=== PATIENT | male | born 1950 | race Caucasian/White ===

== ENCOUNTER → 2017-04-30 | Outpatient (CLI) | payer OTHER, MEDICARE ==
[~2017-04-30] MED LIST: PRLSR20 PO
--- NOTE | 2017-04-30 10:44 | DIAGNOSTIC IMAGING REPORT ---
ULTRASOUND EXAM AAA SCREEN CLINICAL HISTORY: 67 years-old Male with EX SMOKER. Screening examination to assess for abdominal aortic aneurysm. Patient has history of prior tobacco abuse. COMPARISON: None available TECHNIQUE: Multiple real time sonographic images of the abdominal aorta were obtained assessing rodriguez-scale appearance as well as color. Doppler and spectral waveform analysis. FINDINGS: MEASUREMENTS: Proximal Aorta: 1.8 x 1.9 cm Mid Aorta: 1.7 x 1.7 cm Distal Aorta: 1.7 x 2.0 cm Right Common Iliac Artery: 1.1 x 1.1 cm Left Common Iliac Artery: 1.1 x 1.2 cm Pulsatile color Doppler flow is seen within the abdominal aorta. Study overall is limited secondary to patient body habitus. IMPRESSION: No evidence of abdominal aortic aneurysm. Mildly limited study secondary to patient body habitus. The above report was generated using voice recognition software. It may contain grammatical, syntax or spelling errors. Electronically signed by: Elan Larry M.D. 04/30/2017 10:43 AM Dictated Date/Time: 04/30/2017 10:40 AM
== END | disposition home or self-care (01) ==
LOC: C.ULTR 10:09
PROVIDERS: ATTEND Physician Assistant
DX: Z87.891 Personal history of nicotine dependence (principal)

== ENCOUNTER 2018-03-29 11:16 | Emergency (ER) | payer OTHER, MEDICARE ==
[~2018-03-29] VITALS: Ht 177.8 cm; Wt 107.8 kg
[2018-03-29 11:18] VITALS: TEMP 36.6; Ht 177.8 cm; Wt 107.8 kg
--- NOTE | 2018-03-29 11:39 | EMERGENCY ROOM VISIT NOTE ---
History First contact with patient: 11:22 Chief Complaint: TESTICULAR PAIN Stated Complaint: SWOLLEN RT TESTICAL History of Present Illness The patient is a 67 year old male who presents to the Emergency Room with complaints of right-sided testicular swelling and pain. The patient states he has had a swollen right testicle for many years. Last week, the patient drove to and from [place] and sat at a poker table a week. He states "I really passed it off". The patient rates the pain 2/10, and states the only things that worsen and are direct pressure or squeezing. He denies any injury or recent illness. He states the swelling has remained approximately the same, but the pain has been worsening. He has never had this worked up in the past. Patient denies any dysuria, urinary frequency, urinary hesitancy, or hematuria. He denies any sexual dysfunction. He is taken no medications for his symptoms. The patient denies any discoloration or rash. Review of Systems A complete 10 point review of systems was reviewed with the patient with pertinent positives and negatives as per history of present illness. All else were negative. Past Medical/Surgical History Hypertension, heart disease Social History Smoking Status: Never Smoker Smokeless Tobacco Use: No Alcohol Use: occasionally Drug Use: none Marital Status: single Housing Status: lives with family Current/Historical Medications Scheduled Ciprofloxacin Hcl (Cipro), 500 MG PO BID Scheduled PRN Omeprazole (Prilosec), 20 MG PO HS PRN for STOMACH Physical Exam Vital Signs Date Time Temp Pulse Resp B/P (MAP) Pulse Ox O2 Delivery O2 Flow Rate FiO2 03/29/18 12:52 59 17 115/61 95 Room Air 03/29/18 12:32 58 20 114/73 99 Room Air 03/29/18 11:18 36.6 74 18 127/70 95 Room Air Physical Exam VITAL SIGNS - Vital signs and nursing notes were reviewed. GENERAL -67-year-old Male appearing his stated age who is in no acute distress. Communicates well with provider and answers questions appropriately. HEART: Regular rate and rhythm without murmurs gallops or rubs. LUNGS: Clear to auscultation bilaterally without wheezes, rales or rhonchi. No dullness to percussion. No retractions or accessory muscle use. ABDOMEN - Abdominal contour distended without pulsations or visible masses. BS normoactive all four quadrants. No tenderness to palpation appreciated diffusely. No palpable masses, hepatosplenomegaly, or ascites noted. GENITOURINARY - Circumcised male without penile lesions or adhesions. No urethral discharge. Right sided testicular tenderness to palpation appreciated. Right testicle and scrotum approximately 4x the size of the left (approximately the size of a lemon). No palpable masses. Negative blue dot sign. PSYCH - A&Ox3 and cooperates fully with examiner. Pt is very pleasant and interacts well with examiner. Medical Decision & Procedures ER Provider Diagnostic Interpretation: SCROTAL ULTRASOUND CLINICAL HISTORY: Right testicular pain and swelling. COMPARISON STUDY: None. TECHNIQUE: Grayscale and color and duplex Doppler sonography of the scrotum was performed. FINDINGS: The right testis measures 4.3 x 2.6 x 2.3 cm and the left measures 2.8 x 2.7 x 3 cm. There is no testicular mass. Color flow within each testis is noted. There is apparent slight asymmetric increased color flow within the right testis when compared to the left. There is no evidence for epididymitis. A few tiny epididymal cysts are noted. Note is made of a large complex right sided hydrocele. IMPRESSION: 1. No evidence of testicular torsion, testicular mass or epididymitis. 2. Large complex right hydrocele which contains homogeneous echoes which are nonspecific although favor debris. A hematocele could appear similar although is considered less likely. 3. Slight asymmetric increased flow within the right testis which is likely within normal limits although orchitis could appear similar. Electronically signed by: Andi Plasencia M.D. 03/29/2018 12:33 PM Dictated Date/Time: 03/29/2018 12:28 PM Laboratory Results 03/29/18 11:40 Red Blood Count 4.60, Mean Corpuscular Volume 92.2, Mean Corpuscular Hemoglobin 32.0, Mean Corpuscular Hemoglobin Concent 34.7, Mean Platelet Volume 10.0, Neutrophils (%) (Auto) 62.8, Lymphocytes (%) (Auto) 26.4, Monocytes (%) (Auto) 8.9, Eosinophils (%) (Auto) 1.2, Basophils (%) (Auto) 0.4, Neutrophils # (Auto) 4.81, Lymphocytes # (Auto) 2.02, Monocytes # (Auto) 0.68, Eosinophils # (Auto) 0.09, Basophils # (Auto) 0.03 03/29/18 11:40 Test 03/29/18 11:40 03/29/18 13:00 White Blood Count 7.65 K/uL (4.8-10.8) Red Blood Count 4.60 M/uL (4.7-6.1) Hemoglobin 14.7 g/dL (14.0-18.0) Hematocrit 42.4 % (42-52) Mean Corpuscular Volume 92.2 fL (80-100) Mean Corpuscular Hemoglobin 32.0 pg (25-34) Mean Corpuscular Hemoglobin Concent 34.7 g/dl (32-36) Platelet Count 203 K/uL (130-400) Mean Platelet Volume 10.0 fL (7.4-10.4) Neutrophils (%) (Auto) 62.8 % Lymphocytes (%) (Auto) 26.4 % Monocytes (%) (Auto) 8.9 % Eosinophils (%) (Auto) 1.2 % Basophils (%) (Auto) 0.4 % Neutrophils # (Auto) 4.81 K/uL (1.4-6.5) Lymphocytes # (Auto) 2.02 K/uL (1.2-3.4) Monocytes # (Auto) 0.68 K/uL (0.11-0.59) Eosinophils # (Auto) 0.09 K/uL (0-0.5) Basophils # (Auto) 0.03 K/uL (0-0.2) RDW Standard Deviation 43.9 fL (36.4-46.3) RDW Coefficient of Variation 13.2 % (11.5-14.5) Immature Granulocyte % (Auto) 0.3 % Immature Granulocyte # (Auto) 0.02 K/uL (0.00-0.02) Anion Gap 9.0 mmol/L (3-11) Est Creatinine Clear Calc Drug Dose 66.7 ml/min Estimated GFR () 63.5 Estimated GFR (Non- 54.8 BUN/Creatinine Ratio 13.6 (10-20) Calcium Level 8.6 mg/dl (8.5-10.1) Total Bilirubin 0.6 mg/dl (0.2-1) Aspartate Amino Transf (AST/SGOT) 38 U/L (15-37) Alanine Aminotransferase (ALT/SGPT) 37 U/L (12-78) Alkaline Phosphatase 76 U/L (45-117) Total Protein 7.0 gm/dl (6.4-8.2) Albumin 3.4 gm/dl (3.4-5.0) Globulin 3.6 gm/dl (2.5-4.0) Albumin/Globulin Ratio 0.9 (0.9-2) Urine Color YELLOW Urine Appearance CLEAR (CLEAR) Urine pH 5.0 (4.5-7.5) Urine Specific [place] 1.007 (1.000-1.030) Urine Protein NEG (NEG) Urine Glucose (UA) NEG (NEG) Urine Ketones NEG (NEG) Urine Occult Blood NEG (NEG) Urine Nitrite NEG (NEG) Urine Bilirubin NEG (NEG) Urine Urobilinogen NEG (NEG) Urine Leukocyte Esterase NEG (NEG) ED Course The patient was seen and evaluated as above. IV access obtained, labs drawn. Imaging performed and reviewed by myself and radiologist as above. Labs reviewed by myself. I discussed the findings with the patient at bedside. I discussed the case with my attending. I consulted with Urology and spoke with Vasu Santoy STEPHANY, who spoke with the button breaker operator urologist. Recommendation made for obtaining a urine culture and starting the patient on Antibiotics (Cipro or Bactrim). The patient was given his first dose of Cipro here in the ED. Urine culture sent to the lab. ED contacted by urology office. The patient will see Dr. Francisco, urologist, tomorrow in the office at 10:00am. Discharge instructions reviewed, the patient was discharged home in good condition. Medical Decision This is a 67-year-old male patient presents the emergency department planing of increased swelling and pain in his right testicle. The patient does report a history of swelling in the right testicle for many years. He has never had it worked up before. He presents today due to ongoing pain for the past 1 week after traveling and sitting frequently. Laboratory workup here in the emergency department did not reveal any leukocytosis, anemia, thrombus cytopenia. Renal, hepatic function testing was without significant abnormality. Electrolytes were without significant abnormality. Ultrasound performed and showed evidence for hydrocele with debris, possible hematocele. Urology contacted regarding the findings and recommendations made for outpatient management and antibiotics at this time. The patient was started on ciprofloxacin here in the emergency department. Urine culture sent to the lab. The patient will follow-up with urology regarding ongoing management. Differential diagnosis includes hydrocele, hematocele, varicocele, testicular torsion, epididymitis, orchitis, malignancy, UTI, STD, and others. The chart was completed utilizing [employer] Speech voice recognition software. Grammatical errors, random word insertions, pronoun errors, and incomplete sentences are an occasional consequence of this system due to software limitations, ambient noise, and hardware issues. Any formal questions or concerns about the content, text, or information contained within the body of this dictation should be directly addressed to the provider for clarification. Medication Reconcilliation Current Medication List: was personally reviewed by me Blood Pressure Screening Patient's blood pressure: Normal blood pressure Impression Primary Impression: Hydrocele in adult Departure Information Dispostion Home / Self-Care Condition GOOD Prescriptions Ciprofloxacin Hcl (CIPRO) 500 Mg Tab 500 MG PO BID for 10 Days, #20 TAB Prov: Shira Carvajal PA-C 03/29/18 Referrals Kami Lam PA-C (PCP) Shahid Francisco M.D. Miller, Howard I., MD, Urology Patient Instructions ED Hydrocele Type Not Specified, My [facility] Additional Instructions You were seen in the emergency department today for right testicular swelling and pain. As discussed, ultrasound shows evidence for what is known is a hydrocele. You were prescribed Cipro to be taken twice daily as directed. This is an antibiotic. All antibiotics have the potential to cause diarrhea. Stop this medication and contact a medical provider if you were to develop any significant adverse side effects including: wheezing, shortness of breath, passing out, vomiting, or a diffuse rash. Always take antibiotics as directed and COMPLETE the ENTIRE course regardless of the improvement of your symptoms. Ibuprofen(Motrin, Advil) may be used for fever or pain. Use 600mg every six hours as needed. Take with food. Avoid using more than 2400mg in a 24 hour period. Do not use 2400mg per day for more than three consecutive days without physician direction. Prolonged inappropriate use can lead to stomach upset or ulcers. (AND/OR) Acetaminophen(Tylenol) may be used for fever or pain. Use 1000mg every six hours as needed. Avoid using more than 3000mg in a 24 hour period. Use scrotal support to help with pain and swelling. Follow-up with urology at the appointment you were provided with. They will determine the definitive management for the concern. Return to the emergency department for any significantly worsening pain, swelling, numbness or tingling, urinary symptoms, discoloration, or other concerning symptoms.
[2018-03-29 11:51] LABS: BASO % 0.4 %; BASO ABS # 0.03 K/uL (0-0.2); EOS % 1.2 %; EOS ABS # 0.09 K/uL (0-0.5); HEMATOCRIT 42.4 % (42-52); HEMOGLOBIN 14.7 g/dL (14.0-18.0); IG# 0.02 K/uL (0.00-0.02); LYMPH % 26.4 %; LYMPH ABS # 2.02 K/uL (1.2-3.4); MEAN CELL VOLUME 92.2 fL (80-100); MEAN CORPUSCULAR HGB CONC 34.7 g/dl (32-36); MONO % 8.9 %; MONO ABS # 0.68 K/uL (0.11-0.59); NEUT % 62.8 %; NEUT ABS # 4.81 K/uL (1.4-6.5); PLATELET COUNT 203 K/uL (130-400); RED CELL DISTRIBUTION WIDTH CV 13.2 % (11.5-14.5); RED CELL DISTRIBUTION WIDTH SD 43.9 fL (36.4-46.3); WHITE BLOOD COUNT 7.65 K/uL (4.8-10.8)
[2018-03-29 12:11] LABS: ALBUMIN 3.4 gm/dl (3.4-5.0); CALCIUM 8.6 mg/dl (8.5-10.1); CREATININE 1.34 mg/dl (0.60-1.40); POTASSIUM 3.6 mmol/L (3.5-5.1)
--- NOTE | 2018-03-29 12:35 | DIAGNOSTIC IMAGING REPORT ---
SCROTAL ULTRASOUND CLINICAL HISTORY: Right testicular pain and swelling. COMPARISON STUDY: None. TECHNIQUE: Grayscale and color and duplex Doppler sonography of the scrotum was performed. FINDINGS: The right testis measures 4.3 x 2.6 x 2.3 cm and the left measures 2.8 x 2.7 x 3 cm. There is no testicular mass. Color flow within each testis is noted. There is apparent slight asymmetric increased color flow within the right testis when compared to the left. There is no evidence for epididymitis. A few tiny epididymal cysts are noted. Note is made of a large complex right sided hydrocele. IMPRESSION: 1. No evidence of testicular torsion, testicular mass or epididymitis. 2. Large complex right hydrocele which contains homogeneous echoes which are nonspecific although favor debris. A hematocele could appear similar although is considered less likely. 3. Slight asymmetric increased flow within the right testis which is likely within normal limits although orchitis could appear similar. Electronically signed by: Andi Plasencia M.D. 03/29/2018 12:33 PM Dictated Date/Time: 03/29/2018 12:28 PM
[2018-03-29] MEDS ORDERED: CIPROFLOXACIN 500 MG TAB PO STA (13:03)
--- NOTE | 2018-03-29 13:06 | EMERGENCY ROOM VISIT NOTE ---
ED Visit Note First contact with patient: 11:22 The patient was seen and examined with Shira Carvajal PA-C. I agree with the history, physical and findings. Please see the note for disposition and details.
[2018-03-29] MEDS ORDERED: CIPR-255 PO (13:10)
[2018-03-29 13:25] VITALS: BP 115/61; PULSE 59; O2SAT 95
== END 2018-03-29 13:26 | disposition home or self-care (01) ==
LOC: C.EDB 11:17 → C.EDC 13:26
DX: N43.3 Hydrocele, unspecified (principal); I10 Essential (primary) hypertension

== ENCOUNTER 2024-08-15 11:54 | Inpatient (IN) ==
--- NOTE | 2024-08-15 12:08 | Emergency Department Note ---
Impression & Plan Chest pain, Abdominal pain, Hypomagnesemia, Cholelithiasis ED Provider Note CHIEF COMPLAINT: Chest pain, epigastric abdominal pain, hypertension HISTORY OF PRESENTING ILLNESS: This 74-year-old male patient presents emergency department with his and son for evaluation of epigastric abdominal pain radiating into his chest. Symptoms started around 8:30 am when he woke up today. The symptoms are getting progressively worse. The pain is now spreading into the rest of his abdomen. Denies tearing or ripping pain, but feels like a pressure and feels like he has to throw up. Had dry heaves twice, but no vomiting. No history of stents or OK, but his PCP has some concerns about his heart and has an appt with cardiology on 09/12/24. He is not on any blood thinners. He did not take any aspirin today. History of colon cancer cancer s/p partial colectomy and chemo/radiation in 1995. Denies hematochezia, melena, hematuria, hemoptysis, or hematemesis. Denies a history of GI bleeding. Denies any urinary symptoms. Denies any fevers, cough, or URI symptoms. REVIEW OF SYSTEMS: See HPI for pertinent positives and pertinent negatives. ALLERGIES: NKDA MEDICATIONS: Atorvastatin, HCTZ, Losartan, omeprazole PAST MEDICAL HISTORY: HTN, high cholesterol, GERD, colon cancer s/p partial colectomy and chemo/radiation PHYSICAL EXAM: VITALS: Vitals are noted on the nurse's note and reviewed by myself. GENERAL: The patient looks uncomfortable and in pain. He also appears nauseous and slightly pale. However, not diaphoretic. SKIN: Capillary refill <2 sec. EYES: PERRLA. EOMI. Conjunctivae without injection, sclerae without icterus. NOSE: Patent without discharge. MOUTH: Mucous membranes moist. Uvula midline. Airway patent. NECK: Supple without nuchal rigidity. HEART: Regular rate and rhythm without murmurs gallops or rubs. LUNGS: Clear to auscultation bilaterally without wheezes, rales or rhonchi. No retractions or accessory muscle use. ABDOMEN: Positive bowel sounds x 4. The abdomen is somewhat distended. He is diffusely tender to palpation with maximal tenderness in the epigastric area. No masses or hepatosplenomegaly. Licea sign negative. No CVA tenderness. No guarding, rigidity, or rebound tenderness. MUSCULOSKELETAL: No gross musculoskeletal defects. Bilateral calves are nontender to palpation. No erythema, edema, warmth, or cording felt. Peripheral pulses 2+ and equal in the bilateral upper and lower extremities. NEURO: Patient was alert and oriented. No focal neurological deficits. DIFFERENTIAL DIAGNOSIS: Differential diagnosis includes OK, aortic dissection, PE, pneumothorax, hemothorax, perforation, hepatitis, pancreatitis, cholecystitis, cholelithiasis, appendicitis, kidney stone, pyelonephritis, UTI, gastritis, gastroenteritis, mesenteric adenitis, obstruction, constipation, hernia, abdominal abscess, perforation, diverticulitis, IBD, ischemic colitis, abdominal aortic aneurysm, testicular torsion, prostatitis, or others. ED COURSE AND MEDICAL DECISION MAKING: HISTORY FROM INDEPENDENT HISTORIAN: Additional history obtained from the patient's and son. MEDICATIONS GIVEN: Morphine 4 mg IV, Zofran 4 mg IV. Morphine 2 mg IV. Pepcid 20 mg IV. Aspirin 324 mg p.o. chewed. Carafate 1 g p.o. Magnesium 1 g IV. Dilaudid 0.5 mg IV. There is currently a severe shortage of IV fluids. The patient's condition was assessed and IV fluids were initially held in the ER. MONITOR: Continuous cooker mechanic: Order was placed for continuous cooker mechanic. Patient was placed on the cooker mechanic and continuous pulse ox. Patient was noted to be in normal sinus rhythm at an initial rate of 60 bpm per my interpretation. EKG: EKG was interpreted by myself as sinus bradycardia at 58 bpm with T wave inversions in the lateral leads. Repeat EKG with sinus bradycardia at 56 bpm with prolonged QT, but no acute ST or T wave changes. INTERPRETATION OF LABS: I interpreted the labs with full lab results as below in the lab section of this note. Pertinent lab results discussed in the MDM section below. INTERPRETATION OF IMAGING: Imaging studies were interpreted by myself and read by radiology as per the imaging section of this note. Chest x-ray shows mild enlargement of the cardiac silhouette, but no other acute cardiopulmonary etiology. CTA of the chest, abdomen, and pelvis with dissection protocol showed no evidence of aortic dissection. There is aneurysmal dilation of the ascending aorta measuring 4.8 cm at the level of the main pulmonary artery. Moderate aortic valve calcification. Findings raising the possibility of acute cholecystitis. Right upper quadrant ultrasound is recommended for further evaluation. No other acute intra-abdominal or intrapelvic etiology. Right upper quadrant ultrasound showed a distended gallbladder with stones and sludge, but no obvious evidence for cholecystitis. Hepatic steatosis is present. CONSULTATIONS: On-call hospitalist CRITICAL CARE: I have personally spent 60 minutes of critical care time in the direct management of this patient. This includes bedside care, interpretation of diagnostic studies, and testing, discussion with consultants, patient, and family members, and other required patient management activities. This 60 minutes is in excess of all separately billable procedures. MDM SUMMARY: I examined the patient. The patient started with epigastric abdominal pain abruptly around 8:30 AM when he woke up this morning. The pain radiates into his chest and is now spreading to the rest of his abdomen. Symptoms are getting progressively worse. He has nausea and dry heaving, but no vomiting. He is not on any blood thinners. He did not take any aspirin today. The patient's blood pressure is also elevated. He took his losartan this morning as prescribed. On initial exam, the patient appeared to be in pain, was pale, and hypertensive. However, he was bradycardic. He was not diaphoretic. Based on the patient's history, vital signs, and exam, there was concern for possible aortic dissection. Nursing staff was at bedside at the time of my examination and were placing the IV and drawing laboratory studies. EKG did not show evidence for ischemia or STEMI. The patient had a stat chest x-ray performed. The patient was independently evaluated by Dr. Becker, who examined the patient and agrees with my assessment and treatment plan. He patient was then taken down for a stat CTA of the chest, abdomen, and pelvis with dissection protocol. Aspirin was held initially due to the concern for aortic dissection. The patient was given morphine as above to help with pain control and blood pressure. The patient's blood pressure did improve after the morphine. White blood cell count elevated at 12.50. Hemoglobin low at 13.4. Platelet count normal at 202. Coags were normal. Creatinine elevated at 1.41 and glucose 135, but CMP otherwise normal. Magnesium low at 1.4 and the patient was given magnesium 1 g IV. High-sensitivity troponin elevated at 21 with a delta high sensitive troponin of 24.6. Urinalysis without evidence of blood or UTI. Chest x-ray shows mild enlargement of the cardiac silhouette, but no other acute cardiopulmonary etiology. CTA of the chest, abdomen, and pelvis with dissection protocol showed no evidence of aortic dissection. There is aneurysmal dilation of the ascending aorta measuring 4.8 cm at the level of the main pulmonary artery. Moderate aortic valve calcification. Findings raising the possibility of acute cholecystitis. Right upper quadrant ultrasound is recommended for further evaluation. No other acute intra-abdominal or intrapelvic etiology. Right upper quadrant ultrasound showed a distended gallbladder with stones and sludge, but no obvious evidence for cholecystitis. Hepatic steatosis is present. Once aortic dissection was ruled out, the patient was given aspirin 324 mg p.o. chewed. Repeat EKG without evidence of ischemia or STEMI and repeat high- sensitivity troponin with only slight increase. The patient had continued pain despite morphine 4 mg IV, Zofran 4 mg IV, morphine 2 mg IV, Pepcid 20 mg IV, aspirin 324 mg p.o. chewed, Carafate 1 g p.o., and Dilaudid 0.5 mg IV. Based on the patient's history, exam, workup findings, and progress and clinical course, I suspect his symptoms are likely secondary to the cholelithiasis, sludge, and biliary colic. There is concern for possible cholecystitis on CT scan, but read for quadrant ultrasound negative for cholecystitis. However, the patient does have an elevated white blood cell count. The patient was afebrile in the ER. Given the patient's presentation, workup findings, and persisting symptoms, it was felt the patient would benefit from admission. I spoke with the on-call hospitalist who agreed to admit the patient for further evaluation and treatment. Please refer to their dictation for further details. The patient's care was transferred in stable condition. DIAGNOSIS: Chest pain Abdominal pain Cholelithiasis with gallbladder sludge Hypomagnesemia Past Med/Surg History Problem List (Updated 08/15/24 @ 19:51 by Melvi Mora PA-C) Cholelithiasis (Acute) Hypomagnesemia (Acute) Abdominal pain (Acute) Chest pain (Acute) Elevated serum creatinine Troponin level elevated REMA (acute kidney injury) Alcohol use disorder Hypomagnesemia Nausea and vomiting Abdominal pain Medical History Aortic stenosis Ascending aorta dilatation Aortic root dilation LVH (left ventricular hypertrophy) Aortic stenosis due to bicuspid aortic valve H/O sleep apnea S/P UPPV Bicuspid aortic valve MILD BY 2020 ECHO Leukoplakia of vocal cords Laryngoscopies with scraping every 8 months History of colon cancer Acid reflux Hyperlipidemia Hypertension Surgical History H/O oral surgery UPPV for GEREMIAS History of laryngoscopy "45 SURGERIES FOR" Hx of colonoscopy History of colon resection w/umbilical hernia repair Family History Other Aortic aneurysm Social History Smoking Status: Never smoker Cigarettes Per Day: QUIT , H/O 1PPD; Second Hand Exposure: No; Do You Dip or Chew Tobacco: No; Hx Alcohol Use: Yes Alcohol type: beer and hard liquor Alcohol Intake Frequency: 4 or More x per/Week Alcohol Intake Frequency Comment: 3-4 drinks / night, denies h/o withdrawal Hx Substance Use: No Preferred Language: Slovak Communication Ability: Effective Visual Impairment: No Limitations Nursing Program Director Required: No Beliefs That Will Affect Care: None Current Living Situation: Spouse Other Information That Helps Us Care for You: No Feels Safe at Home: Yes Safety Concerns: Feels Safe At This Time Assistive Devices: Glasses Allergies Allergies Allergy/AdvReac Type Severity Reaction Status Date / Time No Known Allergies Allergy Verified 03/08/24 11:26 Home Meds Home Medications Medication Instructions Recorded Confirmed atorvastatin 10 mg tablet 10 mg PO QAM 07/01/18 08/15/24 hydrochlorothiazide 12.5 mg capsule 12.5 mg PO QAM 07/01/18 08/15/24 losartan 100 mg tablet 100 mg PO QAM 07/01/18 08/15/24 omeprazole 20 mg tablet,delayed 20 mg PO BID 07/01/18 08/15/24 release Results & Data (ED) Vital Signs Vital Signs - 24 hr 08/15/24 11:55 08/15/24 12:15 08/15/24 12:22 Temperature 36.0 C L Temperature Source Temporal Artery Scan Pulse Rate 57 L 57 L 88 Pulse Rate from SpO2 Sensor Pulse Rhythm Regular Regular Pulse Strength Normal Respiratory Rate 20 14 12 Respiratory Effort / Characteristics Non-Labored Spontaneous Respiratory Depth Normal Respiratory Pattern Regular Blood Pressure 203/81 H 188/93 H Blood Pressure Mean 121 114 Blood Pressure Position Sitting Pulse Oximetry 100 98 Oxygen Delivery Method Room Air Room Air Sepsis Recent Fever Within 48 Hours No Sepsis New/Unexplained Change in Mental Status No Sepsis Action Taken by Nursing No Action Required 08/15/24 12:25 08/15/24 12:45 08/15/24 13:00 Temperature Temperature Source Pulse Rate 60 58 L 57 L Pulse Rate from SpO2 Sensor Pulse Rhythm Pulse Strength Respiratory Rate 18 14 17 Respiratory Effort / Characteristics Respiratory Depth Respiratory Pattern Blood Pressure 191/103 H 152/78 H 165/83 H Blood Pressure Mean 151 127 113 Blood Pressure Position Pulse Oximetry 99 Oxygen Delivery Method Sepsis Recent Fever Within 48 Hours Sepsis New/Unexplained Change in Mental Status Sepsis Action Taken by Nursing 08/15/24 13:15 08/15/24 13:30 08/15/24 14:30 Temperature Temperature Source Pulse Rate 61 62 Pulse Rate from SpO2 Sensor Pulse Rhythm Pulse Strength Respiratory Rate 16 17 Respiratory Effort / Characteristics Respiratory Depth Respiratory Pattern Blood Pressure 155/94 H 131/76 167/91 H Blood Pressure Mean 124 91 118 Blood Pressure Position Pulse Oximetry 99 98 Oxygen Delivery Method Sepsis Recent Fever Within 48 Hours Sepsis New/Unexplained Change in Mental Status Sepsis Action Taken by Nursing 08/15/24 14:45 08/15/24 15:00 08/15/24 15:31 Temperature Temperature Source Pulse Rate 58 L 60 59 L Pulse Rate from SpO2 Sensor 58 L Pulse Rhythm Pulse Strength Respiratory Rate 15 14 18 Respiratory Effort / Characteristics Respiratory Depth Respiratory Pattern Blood Pressure 164/78 H 167/91 H 153/82 H Blood Pressure Mean 106 110 119 Blood Pressure Position Pulse Oximetry 100 98 98 Oxygen Delivery Method Room Air Room Air Room Air Sepsis Recent Fever Within 48 Hours Sepsis New/Unexplained Change in Mental Status Sepsis Action Taken by Nursing 08/15/24 16:00 08/15/24 16:15 Temperature Temperature Source Pulse Rate 60 Pulse Rate from SpO2 Sensor Pulse Rhythm Pulse Strength Respiratory Rate 18 Respiratory Effort / Characteristics Respiratory Depth Respiratory Pattern Blood Pressure 156/81 H 156/98 H Blood Pressure Mean 117 126 Blood Pressure Position Pulse Oximetry 96 Oxygen Delivery Method Room Air Sepsis Recent Fever Within 48 Hours Sepsis New/Unexplained Change in Mental Status Sepsis Action Taken by Nursing Laboratory Data 08/15/24 12:10 08/15/24 12:10 Lab Results 08/15/24 08/15/24 Range/Units 12:10 14:13 WBC 12.50 H (4.8-10.8) K/ul RBC 4.29 L (4.70-6.10) M/uL Hgb 13.4 L (14.0-18.0) g/dl Hct 38.3 L (42.0-52.0) % MCV 89.3 (80.0-100.0) fL MCH 31.2 (25.0-34.0) pg MCHC 35.0 (32.0-36.0) g/dL RDW Std Deviation 42.6 (36.4-46.3) fL RDW Coeff of Estrellita 13.2 (11.5-14.5) % Plt Count 202 (130-400) K/uL MPV 10.0 (9.4-12.4) fL Immature Gran % (Auto) 0.5 % Neut % (Auto) 78.9 % Lymph % (Auto) 13.0 % Bell % (Auto) 6.6 % Eos % (Auto) 0.6 % Baso % (Auto) 0.4 % Neut # (Auto) 9.88 H (1.40-6.50) K/uL Lymph # (Auto) 1.62 (1.20-3.40) K/uL Bell # (Auto) 0.82 H (0.11-0.59) K/uL Eos # (Auto) 0.07 (0.00-0.50) K/uL Baso # (Auto) 0.05 (0.00-0.20) K/uL Immature Gran # (Auto) 0.06 (0.01-0.20) K/uL PT 10.6 (9.0-12.0) Seconds INR 1.0 (0.9-1.1) APTT 24 (21-31) Seconds PTT Ratio 0.9 Sodium 136 (136-145) mmol/L Potassium 4.1 (3.5-5.1) mmol/L Chloride 102 (98-107) mmol/L Carbon Dioxide 23 (21-32) mmol/L Anion Gap 11 (3-11) BUN 21 (6-23) mg/dl Creatinine 1.41 H (0.6-1.4) mg/dl Est Cr Clr Drug Dosing 55.8 ml/min eGFR 52.62 BUN/Creatinine Ratio 14.9 (10-20) Glucose 135 H (70-99(Fasting)) mg/dl Calcium 9.5 (8.6-10.3) mg/dl Magnesium 1.4 L (1.7-2.4) mg/dl Total Bilirubin 0.8 (0.2-1.0) mg/dl AST 20 (13-39) U/L ALT 14 (7-52) U/L Alkaline Phosphatase 86 (34-104) U/L Troponin I High Sens 21.0 H 24.6 H (0-20) pg/ml Total Protein 7.5 (6.0-8.3) gm/dl Albumin 4.2 (3.4-5.0) gm/dl Globulin 3.3 (2.5-4.0) gm/dl Albumin/Globulin Ratio 1.3 (0.9-2) Lipase 25 (11-82) U/L Administered Medications Acetaminophen (Acetaminophen 500 Mg Tab) 1,000 mg PO Q8H CHE Stop: 09/14/24 16:29 Last Admin: 08/16/24 01:21 Dose: 1,000 mg Documented By: Admin: 08/15/24 17:22 Dose: 1,000 mg Documented By: MANDA Pantoprazole Sodium (Protonix) 40 mg in 10 mls @ 5 mls/min IV BID CHE Stop: 09/14/24 20:59 Last Admin: 08/15/24 19:44 Dose: 5 mls/min Documented By: JAZLYN Ampicillin Sodium/Sulbactam Sodium (Unasyn) 3,000 mg in 100 mls @ 200 mls/hr IV Q6H CHE Stop: 08/25/24 19:29 Last Infusion: 08/16/24 01:58 Dose: Infused Documented By: Admin: 08/16/24 01:20 Dose: 200 mls/hr Documented By: Infusion: 08/15/24 22:30 Dose: Infused Documented By: Admin: 08/15/24 21:59 Dose: 200 mls/hr Documented By: JAZLYN Simethicone (Simethicone 80 Mg Chew) 80 mg PO Q6H CHE Stop: 08/16/24 18:59 Last Admin: 08/16/24 01:23 Dose: 80 mg Documented By: Admin: 08/15/24 19:48 Dose: 80 mg Documented By: JAZLYN Discontinued Medications Aspirin (Aspirin Chew 324 Mg) 324 mg PO NOW STA Stop: 08/15/24 13:28 Last Admin: 08/15/24 13:30 Dose: 324 mg Documented By: CONSTANTIN Hydromorphone HCl (Hydromorphone Inj 0.5 Mg/0.5 Ml Syr) 0.5 mg IV NOW STA Stop: 08/15/24 15:17 Last Admin: 08/15/24 15:20 Dose: 0.5 mg Documented By: MADNA Famotidine (Pepcid 20mg Iv Push) 20 mg in 5 mls @ 2.5 mls/min IV NOW STA Stop: 08/15/24 13:21 Last Admin: 08/15/24 13:23 Dose: 2.5 mls/min Documented By: ANT Magnesium Sulfate/Dextrose (Magnesium Sulfate / D5w) 1 gm in 100 mls @ 100 mls/hr IV NOW STA Stop: 08/15/24 15:15 Last Infusion: 08/15/24 15:33 Dose: Infused Documented By: Admin: 08/15/24 14:24 Dose: 100 mls/hr Documented By: ANT Sodium Chloride (Nss) 1,000 mls @ 100 mls/hr IV .Q10H CHE Stop: 08/16/24 02:29 Last Admin: 08/15/24 17:22 Dose: 100 mls/hr Documented By: MANDA Magnesium Sulfate/Dextrose (Magnesium Sulfate / D5w) 1 gm in 100 mls @ 50 mls/hr IV ONE ONE Stop: 08/15/24 20:51 Last Infusion: 08/15/24 21:42 Dose: Infused Documented By: Admin: 08/15/24 19:42 Dose: 50 mls/hr Documented By: JAZLYN Ioversol (Optiray 320 125ml) 120 ml IV ONCE ONE Stop: 08/15/24 12:46 Last Admin: 08/15/24 12:45 Dose: 120 ml Documented By: JAR Morphine Sulfate (Morphine Sulfate 4 Mg/Ml 1 Ml Carp\\Vial) 4 mg IV NOW STA Stop: 08/15/24 12:09 Last Admin: 08/15/24 12:45 Dose: 4 mg Documented By: ANT Morphine Sulfate (Morphine Sulfate 2 Mg/Ml Carp) 2 mg IV NOW STA Stop: 08/15/24 13:21 Last Admin: 08/15/24 13:24 Dose: 2 mg Documented By: ANT Ondansetron HCl (Ondansetron Inj 2 Mg/Ml 2 Ml Vial) 4 mg IV NOW STA Stop: 08/15/24 12:09 Last Admin: 08/15/24 12:45 Dose: 4 mg Documented By: ANT Sucralfate (Sucralfate 1 Gm/10 Ml Udc) 1 gm PO NOW STA Stop: 08/15/24 14:16 Last Admin: 08/15/24 14:24 Dose: 1 gm Documented By: ANT Imaging Data Radiologist's Impression: Abdomen/Pelvis CTA 08/15/24 12:08 CT angio abdomen pelvis w con CLINICAL HISTORY: Chest pain, abdominal pain - eval dissection TECHNIQUE: Multidetector row helical CT of the abdomen and pelvis was performed, following intravenous administration of iodinated contrast. No oral contrast was administered. Automated dose lowering techniques and/or adjustment according to patient size were utilized for this exam. Coronal and sagittal reformations were obtained. MIP and 3D volume rendered reconstructions were obtained. CT DOSE: 2938.51 mGy.cm Comparison: Comparison is made to CT abdomen pelvis 08/15/2024 FINDINGS: Lower chest: Bibasilar atelectasis versus scarring is seen. Liver: Unremarkable. No focal lesions are seen. Gallbladder and biliary tree: No calcified gallstones. Normal caliber wall. No intra- or extrahepatic biliary ductal dilation. Pancreas: Fatty replacement of the pancreas is seen. Spleen: Unremarkable. Adrenals: Unremarkable. Kidneys and ureters: Exophytic cysts are seen. Bladder: Unremarkable. Reproductive organs: Unremarkable. Bowel: Postsurgical changes are seen about the sigmoid flexure. Patient is status post appendectomy. Lymph nodes Retroperitoneal: Unremarkable. Pelvic: Unremarkable. Mesenteric: Unremarkable. Peritoneum: Normal. Abdominal wall: Bilateral fat-containing inguinal hernias are seen. Bones: Degenerative changes in the visualized spine. CT angiogram: The abdominal aortic contours appear intact without evidence of aneurysmal dilatation and/or dissection. No significant atherosclerosis is seen. The origins of the celiac axis, superior mesenteric, inferior mesenteric and bilateral renal arteries are patent. IMPRESSION: No acute abnormalities and in particular no evidence of aortic dissection. ACT 112: Negative or not required by law. Electronically signed by: Patrick Valles M.D. 08/15/2024 12:56 PM Chest CTA 08/15/24 12:08 CT ANGIOGRAPHY OF THE CHEST DISSECTION PROTOCOL CLINICAL HISTORY: Chest pain, epigastric pain. Evaluate for aortic dissection. COMPARISON STUDY: Chest radiograph July 07, 2018. Chest radiograph performed earlier today. TECHNIQUE: Before and following the IV administration of 120 mL of Optiray, helical axial images of the chest were obtained. Maximal intensity projections and sagittal and coronal reformats were viewed on an independent 3D workstation. IV contrast was administered without complication. Automated exposure control was utilized for the study. A dose lowering technique was utilized adhering to the principles of ALARA. FINDINGS: Ascending aorta is dilated, measuring 4.8 cm at the level of the main pulmonary artery. There is no intramural hematoma or thoracic aortic dissection. There is moderate aortic valvular calcification. The aorta measures approximately 4.4 cm at the level the sinuses of Valsalva. No pulmonary emboli are identified. The heart is mildly enlarged. There is no pericardial effusion. No enlarged axillary, mediastinal or hilar lymph nodes are present. There is no pneumothorax or pleural effusion. No suspicious pulmonary nodules are present. Subpleural groundglass right lower lobe opacity favors atelectasis or scarring. The gallbladder is distended. There is pericholecystic stranding. There may be evidence for hyperemia within the adjacent liver parenchyma. IMPRESSION: 1. No thoracic aortic dissection. 2. Aneurysmal dilatation of the ascending aorta measuring 4.8 cm at the level of the main pulmonary artery. 3. Moderate aortic valvular calcification. 4. Findings raising the possibility of acute cholecystitis. Right upper quadrant ultrasound is recommended for further evaluation. ACT 112: Negative or not required by law. Electronically signed by: Andi Plasencia M.D. 08/15/2024 1:22 PM Chest X-Ray 08/15/24 12:08 XR chest 1V portable CLINICAL HISTORY: Chest pain, nonspecific COMPARISON STUDY: Chest radiograph July 07, 2018. FINDINGS: Lung volumes are normal. Lungs are clear. There is no pneumothorax or pleural effusion. There is mild enlargement of the cardiac silhouette. Mediastinal contours are normal. There is no evidence for pulmonary edema. IMPRESSION: No acute cardiopulmonary findings. ACT 112: Negative or not required by law. Electronically signed by: Andi Plasencia M.D. 08/15/2024 1:00 PM Gallbladder Ultrasound 08/15/24 13:22 US gallbladder CLINICAL HISTORY: Abdominal pain, ? Cholecystokinin on CT TECHNIQUE: Multiple real-time sonographic images of the right upper quadrant were obtained. Comparison: Comparison is made to CT abdomen pelvis 08/15/2024 FINDINGS: The liver is diffusely echogenic in appearance with poor ultrasound penetration, with normal contour, which is consistent with fatty infiltration. No focal mass lesions are seen. No intrahepatic ductal dilatation is seen. The gallbladder is distended with stones and sludge. No definite pericholecystic fluid is seen. The wall measures 2 mm. A sonographic Licea's sign was not elicited by the senior front end developer. The common duct measures 0.5 cm in diameter at the level of the hepatic artery. The visualized portions of the pancreas appear normal. The right kidney shows normal echogenicity, cortical thickness and renal contour. The right kidney shows no evidence of hydronephrosis or mass. No ascites or free fluid is seen in Desir's pouch. IMPRESSION: 1. Distended gallbladder with stones and sludge however no Licea's sign, wall thickening, or pericholecystic fluid is seen. 2. Hepatic steatosis. ACT 112: Negative or not required by law. Electronically signed by: Patrick Valles M.D. 08/15/2024 2:05 PM Discharge Plan Visit Data Chief Complaint: Abdominal Pain Stated Complaint: HYPERTENSION, CHEST PAIN ED Provider: Elmer Becker ED Midlevel Provider: Melvi Mora Discharge Problem: Chest pain, Abdominal pain, Hypomagnesemia, Cholelithiasis Patient Disposition: Admitted As Inpatient Condition: Good Discharge Instructions Interventions: ED Discharge Assessment Last Done: 08/15/24 18:01 Addendum August 16, 2024 02:52 I was consulted by the Advanced Practice Provider and was substantively involved in the patient's visit.This includes aspects of the HPI, MDM, diagnostic interpretations, and disposition/plan. I discussed the case with the HOMERO, examined the patient, and agree with the findings and plan as documented in HOMERO Morgan's note. Discharge Problem: Chest pain Qualifiers: Chest pain type: unspecified Qualified Code(s): R07.9 - Chest pain, unspecified Abdominal pain Qualifiers: Abdominal location: generalized Qualified Code(s): R10.84 - Generalized abdominal pain Cholelithiasis Qualifiers: Cholelithiasis location: gallbladder Cholecystitis presence: without cholecystitis Biliary obstruction: without biliary obstruction Qualified Code(s): K80.20 - Calculus of gallbladder without cholecystitis without obstruction
[2024-08-15 12:32] LABS: Basophils # (auto) 0.05 K/uL (0.00-0.20); Basophils % (auto) 0.4 %; Eosinophils # (auto) 0.07 K/uL (0.00-0.50); Eosinophils % (auto) 0.6 %; Hematocrit (blood only) 38.3 % (42.0-52.0); Hemoglobin 13.4 g/dl (14.0-18.0); Immature Granulocytes # (auto) 0.06 K/uL (0.01-0.20); Immature Granulocytes % (auto) 0.5 %; Lymphocytes # (auto) 1.62 K/uL (1.20-3.40); Mean Corpuscular Hemoglobin 31.2 pg (25.0-34.0); Mean Corpuscular Volume 89.3 fL (80.0-100.0); Monocytes # (auto) 0.82 K/uL (0.11-0.59); Monocytes % (auto) 6.6 %; Neutrophils # (auto) 9.88 K/uL (1.40-6.50); Neutrophils % (auto) 78.9 %; Platelet Count 202 K/uL (130-400); RDW Coefficient of Variation 13.2 % (11.5-14.5); RDW Standard Deviation 42.6 fL (36.4-46.3); Red Blood Count 4.29 M/uL (4.70-6.10)
[2024-08-15] MEDS: MoRPHine SULFATE 4 MG/ML 1 ML CARP\\VIAL IV STA (12:45)
[2024-08-15] MEDS: ONDANSETRON INJ 2 MG/ML 2 ML VIAL IV STA (12:45)
[2024-08-15] MEDS: OPTIRAY 320 125ml IV ONE (12:45)
[2024-08-15 12:48] LABS: Albumin Globulin Ratio 1.3 (0.9-2); Albumin Level 4.2 gm/dl (3.4-5.0); BUN Creatinine Ratio 14.9 (10-20); Bilirubin,Total 0.8 mg/dl (0.2-1.0); Calcium 9.5 mg/dl (8.6-10.3); Creatinine Clr Calc Pharmacy 55.8 ml/min; Globulin 3.3 gm/dl (2.5-4.0); Magnesium 1.4 mg/dl (1.7-2.4); Potassium 4.1 mmol/L (3.5-5.1); Total Protein 7.5 gm/dl (6.0-8.3)
--- NOTE | 2024-08-15 12:58 | CT Scan Report ---
CT angio abdomen pelvis w con CLINICAL HISTORY: Chest pain, abdominal pain - eval dissection TECHNIQUE: Multidetector row helical CT of the abdomen and pelvis was performed, following intravenou s administration of iodinated contrast. No oral contrast was administered. Automated dose lowering te chniques and/or adjustment according to patient size were utilized for this exam. Coronal and sagitta l reformations were obtained. MIP and 3D volume rendered reconstructions were obtained. CT DOSE: 2938.51 mGy.cm Comparison: Comparison is made to CT abdomen pelvis 08/15/2024 FINDINGS: Lower chest: Bibasilar atelectasis versus scarring is seen. Liver: Unremarkable. No focal lesions are seen. Gallbladder and biliary tree: No calcified gallstones. Normal caliber wall. No intra- or extrahepatic biliary ductal dilation. Pancreas: Fatty replacement of the pancreas is seen. Spleen: Unremarkable. Adrenals: Unremarkable. Kidneys and ureters: Exophytic cysts are seen. Bladder: Unremarkable. Reproductive organs: Unremarkable. Bowel: Postsurgical changes are seen about the sigmoid flexure. Patient is status post appendectomy. Lymph nodes Retroperitoneal: Unremarkable. Pelvic: Unremarkable. Mesenteric: Unremarkable. Peritoneum: Normal. Abdominal wall: Bilateral fat-containing inguinal hernias are seen. Bones: Degenerative changes in the visualized spine. CT angiogram: The abdominal aortic contours appear intact without evidence of aneurysmal dilatation a nd/or dissection. No significant atherosclerosis is seen. The origins of the celiac axis, superior mesenteric, inferior mesenteric and bilateral renal arteries are patent. IMPRESSION: No acute abnormalities and in particular no evidence of aortic dissection. ACT 112: Negative or not required by law. Electronically signed by: Patrick Valles M.D. 08/15/2024 12:56 PM
--- NOTE | 2024-08-15 13:01 | XRay Report ---
XR chest 1V portable CLINICAL HISTORY: Chest pain, nonspecific COMPARISON STUDY: Chest radiograph July 07, 2018. FINDINGS: Lung volumes are normal. Lungs are clear. There is no pneumothorax or pleural effusion. The re is mild enlargement of the cardiac silhouette. Mediastinal contours are normal. There is no eviden ce for pulmonary edema. IMPRESSION: No acute cardiopulmonary findings. ACT 112: Negative or not required by law. Electronically signed by: Andi Plasencia M.D. 08/15/2024 1:00 PM
[2024-08-15 13:07] LABS: Partial Thromboplastin Ratio 0.9; Partial Thromboplastin Time 24 Seconds (21-31); Prothrombin Time 10.6 Seconds (9.0-12.0)
[2024-08-15] MEDS: FAMOTIDINE 20MG IV PUSH 20 MG/5 ML SYR IV STA (13:23)
[2024-08-15] MEDS: MoRPHine SULFATE 2 MG/ML CARP IV STA (13:24)
--- NOTE | 2024-08-15 13:24 | CT Scan Report ---
CT ANGIOGRAPHY OF THE CHEST DISSECTION PROTOCOL CLINICAL HISTORY: Chest pain, epigastric pain. Evaluate for aortic dissection. COMPARISON STUDY: Chest radiograph July 07, 2018. Chest radiograph performed earlier today. TECHNIQUE: Before and following the IV administration of 120 mL of Optiray, helical axial images of t he chest were obtained. Maximal intensity projections and sagittal and coronal reformats were viewed on an independent 3D workstation. IV contrast was administered without complication. Automated exp osure control was utilized for the study. A dose lowering technique was utilized adhering to the toma kiko of CHAD. FINDINGS: Ascending aorta is dilated, measuring 4.8 cm at the level of the main pulmonary artery. Th ere is no intramural hematoma or thoracic aortic dissection. There is moderate aortic valvular calcif ication. The aorta measures approximately 4.4 cm at the level the sinuses of Valsalva. No pulmonary e mboli are identified. The heart is mildly enlarged. There is no pericardial effusion. No enlarged axi llary, mediastinal or hilar lymph nodes are present. There is no pneumothorax or pleural effusion. No suspicious pulmonary nodules are present. Subpleural groundglass right lower lobe opacity favors ate lectasis or scarring. The gallbladder is distended. There is pericholecystic stranding. There may be evidence for hyperemia within the adjacent liver parenchyma. IMPRESSION: 1. No thoracic aortic dissection. 2. Aneurysmal dilatation of the ascending aorta measuring 4.8 cm at the level of the main pulmonary a rtery. 3. Moderate aortic valvular calcification. 4. Findings raising the possibility of acute cholecystitis. Right upper quadrant ultrasound is recomm ended for further evaluation. ACT 112: Negative or not required by law. Electronically signed by: Andi Plasencia M.D. 08/15/2024 1:22 PM
[2024-08-15] MEDS: ASPIRIN CHEW 324 MG PO STA (13:30)
--- NOTE | 2024-08-15 14:06 | Ultrasound Report ---
US gallbladder CLINICAL HISTORY: Abdominal pain, ? Cholecystokinin on CT TECHNIQUE: Multiple real-time sonographic images of the right upper quadrant were obtained. Comparison: Comparison is made to CT abdomen pelvis 08/15/2024 FINDINGS: The liver is diffusely echogenic in appearance with poor ultrasound penetration, with normal contour, which is consistent with fatty infiltration. No focal mass lesions are seen. No intrahepatic duct al dilatation is seen. The gallbladder is distended with stones and sludge. No definite pericholecys tic fluid is seen. The wall measures 2 mm. A sonographic Licea's sign was not elicited by the sonogr apher. The common duct measures 0.5 cm in diameter at the level of the hepatic artery. The visualiz ed portions of the pancreas appear normal. The right kidney shows normal echogenicity, cortical thickness and renal contour. The right kidney sh ows no evidence of hydronephrosis or mass. No ascites or free fluid is seen in Desir's pouch. IMPRESSION: 1. Distended gallbladder with stones and sludge however no Licea's sign, wall thickening, or perich olecystic fluid is seen. 2. Hepatic steatosis. ACT 112: Negative or not required by law. Electronically signed by: Patrick Valles M.D. 08/15/2024 2:05 PM
[2024-08-15] MEDS: MAGNESIUM SULFATE / D5W 1 GM/100 ML BAG IV STA (14:24)
[2024-08-15] MEDS: SUCRALFATE 1 GM/10 ML UDC PO STA (14:24)
[2024-08-15] MEDS: HYDROmorphone INJ 0.5 MG/0.5 ML SYR IV STA (15:20)
--- NOTE | 2024-08-15 16:15 | History & Physical Report ---
Date of Service August 15, 2024 Assessment & Plan (1) Nausea and vomiting: (2) Abdominal pain: Plan: This is a 74-year-old male with PMH of hypertension, hyperlipidemia, GERD, aortic stenosis, ascending aorta dilatation, remote h/o colon cancer and other medical problems listed below who presents with abdominal pain since this morning. Afebrile, WBC 12 Tbili, AST, ALT all within normal limits CTA chest without thoracic aortic dissection. Aneurysmal dilatation of the ascending aorta measuring 4.8 cm at the level of the main pulmonary artery (following [place] [facility] [place] CTA abd/pelvis without evidence of aortic dissection GB ultrasound with distended gallbladder with stones and sludge however no Licea's sign, wall thickening, or pericholecystic fluid is seen. Pain consistent with biliary colic - IV fluids, analgesics, IV PPI, antiemetics, routine gen surg consult (3) Hypomagnesemia: Plan: Mg 1.4. Replacing Repeat Mg in AM (4) Hypertension: Plan: Continue losartan, holding hctz in AM given dehydrated state 2/2 vomiting Manage potential etoh withdrawal (5) Troponin level elevated: Plan: HS trop 21 --> 24.[address] elevation, EKG with sinus bradycardia, prolonged qtc Monitor on tele, trend trops (6) Hyperlipidemia: Plan: Continue statin (7) Aortic stenosis due to bicuspid aortic valve: Plan: Mild, follows with [facility] [place] (8) Ascending aorta dilatation: Plan: Chest CTA today without thoracic aortic dissection. 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 Olivier. Please see addendum. I spent a total of 75 minutes coordinating, documenting, and providing care for this patient excluding time spent in the performance of separately billed services. History of Present Illness Chief Complaint: abd pain Primary Care Provider: Hao Urrutia This is a 74-year-old male with PMH of hypertension, hyperlipidemia, GERD, aortic stenosis, ascending aorta dilatation, remote h/o colon cancer and other medical problems listed below who presents with abdominal pain since this morning. Woke up this AM with abdominal pressure, centrally located. Walked the dogs to see if it would feel better but got worse. Vomited twice from pain. Feels bloated, pain is constant. Had a normal bowel movement around 0300 and at that time did not have abdominal pain. No diarrhea. No F/C, cough, CP, palpitations, SOB, or dysuria. Allergies Allergy/AdvReac Type Severity Reaction Status Date / Time No Known Allergies Allergy Verified 03/08/24 11:26 Home Medications Medication Instructions Recorded Confirmed Type atorvastatin 10 mg tablet 10 mg PO QAM 07/01/18 08/15/24 History hydrochlorothiazide 12.5 mg capsule 12.5 mg PO QAM 07/01/18 08/15/24 History losartan 100 mg tablet 100 mg PO QAM 07/01/18 08/15/24 History omeprazole 20 mg tablet,delayed 20 mg PO BID 07/01/18 08/15/24 History release Past Med/Surg History Problem List (Updated 08/15/24 @ 18:23 by Karen Pack PA-C) Elevated serum creatinine Troponin level elevated REMA (acute kidney injury) Alcohol use disorder Hypomagnesemia Nausea and vomiting Abdominal pain Medical History Aortic stenosis Ascending aorta dilatation Aortic root dilation LVH (left ventricular hypertrophy) Aortic stenosis due to bicuspid aortic valve H/O sleep apnea S/P UPPV Bicuspid aortic valve MILD BY 2020 ECHO Leukoplakia of vocal cords Laryngoscopies with scraping every 8 months History of colon cancer Acid reflux Hyperlipidemia Hypertension Surgical History H/O oral surgery UPPV for GEREMIAS History of laryngoscopy "45 SURGERIES FOR" Hx of colonoscopy History of colon resection w/umbilical hernia repair Family History Other Aortic aneurysm Social History Smoking Status: Never smoker Cigarettes Per Day: QUIT , H/O 1PPD; Second Hand Exposure: No; Do You Dip or Chew Tobacco: No; Hx Alcohol Use: Yes Alcohol type: beer and hard liquor Alcohol Intake Frequency: 4 or More x per/Week Alcohol Intake Frequency Comment: 3-4 drinks / night, denies h/o withdrawal Hx Substance Use: No Preferred Language: Montenegrin Communication Ability: Effective Visual Impairment: No Limitations Senior Project Accountant Required: No Beliefs That Will Affect Care: None Current Living Situation: Spouse Other Information That Helps Us Care for You: No Feels Safe at Home: Yes Safety Concerns: Feels Safe At This Time Assistive Devices: Glasses Review of Systems Review of Systems: At least ten systems reviewed and negative except as noted in the HPI. Physical Exam Physical Exam: Please see Dr. Olivier's addendum for physical exam. Results & Data Results & Data Vital Signs (Past 12 Hours) Vital Signs Temp Pulse Resp BP Pulse Ox O2 Del Method 08/15/24 14:30 62 17 167/91 H 98 08/15/24 13:30 61 16 131/76 99 08/15/24 13:15 155/94 H 08/15/24 13:00 57 L 17 165/83 H 99 08/15/24 12:45 58 L 14 152/78 H 08/15/24 12:25 60 18 191/103 H 08/15/24 12:22 88 12 98 Room Air 08/15/24 12:15 57 L 14 188/93 H 08/15/24 11:55 36.0 C L 57 L 20 203/81 H 100 Room Air Laboratory Results Short CBC 08/15/24 Range/Units 12:10 WBC 12.50 H (4.8-10.8) K/ul Hgb 13.4 L (14.0-18.0) g/dl Hct 38.3 L (42.0-52.0) % Plt Count 202 (130-400) K/uL BMP 08/15/24 12:10 Sodium 136 Potassium 4.1 Chloride 102 Carbon Dioxide 23 BUN 21 Creatinine 1.41 H Glucose 135 H Calcium 9.5 Liver Function 08/15/24 Range/Units 12:10 Total Bilirubin 0.8 (0.2-1.0) mg/dl AST 20 (13-39) U/L ALT 14 (7-52) U/L Alkaline Phosphatase 86 (34-104) U/L Albumin 4.2 (3.4-5.0) gm/dl Diagnostic Findings Abdomen/Pelvis CTA 08/15/24 12:08 CT angio abdomen pelvis w con CLINICAL HISTORY: Chest pain, abdominal pain - eval dissection TECHNIQUE: Multidetector row helical CT of the abdomen and pelvis was performed, following intravenous administration of iodinated contrast. No oral contrast was administered. Automated dose lowering techniques and/or adjustment according to patient size were utilized for this exam. Coronal and sagittal reformations were obtained. MIP and 3D volume rendered reconstructions were obtained. CT DOSE: 2938.51 mGy.cm Comparison: Comparison is made to CT abdomen pelvis 08/15/2024 FINDINGS: Lower chest: Bibasilar atelectasis versus scarring is seen. Liver: Unremarkable. No focal lesions are seen. Gallbladder and biliary tree: No calcified gallstones. Normal caliber wall. No intra- or extrahepatic biliary ductal dilation. Pancreas: Fatty replacement of the pancreas is seen. Spleen: Unremarkable. Adrenals: Unremarkable. Kidneys and ureters: Exophytic cysts are seen. Bladder: Unremarkable. Reproductive organs: Unremarkable. Bowel: Postsurgical changes are seen about the sigmoid flexure. Patient is status post appendectomy. Lymph nodes Retroperitoneal: Unremarkable. Pelvic: Unremarkable. Mesenteric: Unremarkable. Peritoneum: Normal. Abdominal wall: Bilateral fat-containing inguinal hernias are seen. Bones: Degenerative changes in the visualized spine. CT angiogram: The abdominal aortic contours appear intact without evidence of aneurysmal dilatation and/or dissection. No significant atherosclerosis is seen. The origins of the celiac axis, superior mesenteric, inferior mesenteric and bilateral renal arteries are patent. IMPRESSION: No acute abnormalities and in particular no evidence of aortic dissection. ACT 112: Negative or not required by law. Electronically signed by: Patrick Valles M.D. 08/15/2024 12:56 PM Chest CTA 08/15/24 12:08 CT ANGIOGRAPHY OF THE CHEST DISSECTION PROTOCOL CLINICAL HISTORY: Chest pain, epigastric pain. Evaluate for aortic dissection. COMPARISON STUDY: Chest radiograph July 07, 2018. Chest radiograph performed earlier today. TECHNIQUE: Before and following the IV administration of 120 mL of Optiray, helical axial images of the chest were obtained. Maximal intensity projections and sagittal and coronal reformats were viewed on an independent 3D workstation. IV contrast was administered without complication. Automated exposure control was utilized for the study. A dose lowering technique was utilized adhering to the principles of ALARA. FINDINGS: Ascending aorta is dilated, measuring 4.8 cm at the level of the main pulmonary artery. There is no intramural hematoma or thoracic aortic dissection. There is moderate aortic valvular calcification. The aorta measures approximately 4.4 cm at the level the sinuses of Valsalva. No pulmonary emboli are identified. The heart is mildly enlarged. There is no pericardial effusion. No enlarged axillary, mediastinal or hilar lymph nodes are present. There is no pneumothorax or pleural effusion. No suspicious pulmonary nodules are present. Subpleural groundglass right lower lobe opacity favors atelectasis or scarring. The gallbladder is distended. There is pericholecystic stranding. There may be evidence for hyperemia within the adjacent liver parenchyma. IMPRESSION: 1. No thoracic aortic dissection. 2. Aneurysmal dilatation of the ascending aorta measuring 4.8 cm at the level of the main pulmonary artery. 3. Moderate aortic valvular calcification. 4. Findings raising the possibility of acute cholecystitis. Right upper quadrant ultrasound is recommended for further evaluation. ACT 112: Negative or not required by law. Electronically signed by: Andi Plasencia M.D. 08/15/2024 1:22 PM Chest X-Ray 08/15/24 12:08 XR chest 1V portable CLINICAL HISTORY: Chest pain, nonspecific COMPARISON STUDY: Chest radiograph July 07, 2018. FINDINGS: Lung volumes are normal. Lungs are clear. There is no pneumothorax or pleural effusion. There is mild enlargement of the cardiac silhouette. Mediastinal contours are normal. There is no evidence for pulmonary edema. IMPRESSION: No acute cardiopulmonary findings. ACT 112: Negative or not required by law. Electronically signed by: Andi Plasencia M.D. 08/15/2024 1:00 PM Gallbladder Ultrasound 08/15/24 13:22 US gallbladder CLINICAL HISTORY: Abdominal pain, ? Cholecystokinin on CT TECHNIQUE: Multiple real-time sonographic images of the right upper quadrant were obtained. Comparison: Comparison is made to CT abdomen pelvis 08/15/2024 FINDINGS: The liver is diffusely echogenic in appearance with poor ultrasound penetration, with normal contour, which is consistent with fatty infiltration. No focal mass lesions are seen. No intrahepatic ductal dilatation is seen. The gallbladder is distended with stones and sludge. No definite pericholecystic fluid is seen. The wall measures 2 mm. A sonographic Licea's sign was not elicited by the nursing unit clerk. The common duct measures 0.5 cm in diameter at the level of the hepatic artery. The visualized portions of the pancreas appear normal. The right kidney shows normal echogenicity, cortical thickness and renal contour. The right kidney shows no evidence of hydronephrosis or mass. No ascites or free fluid is seen in Desir's pouch. IMPRESSION: 1. Distended gallbladder with stones and sludge however no Licea's sign, wall thickening, or pericholecystic fluid is seen. 2. Hepatic steatosis. ACT 112: Negative or not required by law. Electronically signed by: Patrick Valles M.D. 08/15/2024 2:05 PM Supervising Physician Co-Signing Physician Notes Patient seen and examined Reports epigastric pain that started this AM and worsened Associated with nausea and vomiting Denied chest pain, cough or SOB General: Well hydrated Eyes: PERRL, conjunctivae normal, not pale, anicteric sclerae, EOM intact bilaterally ENMT: External ear and nose normal, oropharynx normal Respiratory: Normal respiratory effort, no respiratory distress, lungs clear to auscultation, no crackles and no wheezes Cardiovascular: RRR S1 S2 Gastrointestinal (Abdomen): Abdomen is mildly distended, soft, +epigastric tenderness Musculoskeletal: No pedal edema Neurologic: No focal weakness, sensation grossly intact Psychiatric: Alert and oriented x 3, euthymic affect Lab notable for WBC 12, Cr 1.41 (unknown baseline), mag 1.4, Trop 21 CTA chest - No thoracic aortic dissection. +Aortic aneurysm CT A/P noted faint pericholecystic stranding and to get Gall bladder USS Gall bladder USS noted cholelithiasis. Negative licea's sign Gall bladder colic Possible REMA, unknown baseline IVF and monitor renal function LFT are normal Spiked fever after getting admitted to the floor Possible cholecystitis Start unasyn for now and monitor Gen surg c/s Replete hypomagnesemia I spent a total of 45 minutes coordinating, documenting and providing care for this patient excluding time spent in performance of separately billed services (4) Hypertension Hypertension type: primary hypertension Qualified Code(s): I10 - Essential (primary) hypertension (6) Hyperlipidemia Hyperlipidemia type: unspecified Qualified Code(s): E78.5 - Hyperlipidemia, unspecified
[2024-08-15] MEDS: ACETAMINOPHEN 500 MG TAB PO SCH (17:22)
[2024-08-15] MEDS: SODIUM CHLORIDE 0.9% 1,000 ML IV SCH (17:22)
--- NOTE | 2024-08-15 17:46 | Electrocardiogram Report ---
Test Reason : Blood Pressure : */* mmHG Vent. Rate : 56 BPM Atrial Rate : 56 BPM P-R Int : 160 ms QRS Dur : 102 ms QT Int : 482 ms P-R-T Axes : 74 -25 204 degrees QTcB Int : 465 ms Sinus bradycardia Prolonged QT Abnormal ECG When compared with ECG of 15-Aug-2024 12:04, (unconfirmed) NM interval has increased Confirmed by Isma Lawrence ([id number]) on 08/15/2024 5:46:52 PM Referred By: REFERRED SELF Confirmed By: Isma Lawrence
--- NOTE | 2024-08-15 17:46 | Electrocardiogram Report ---
Test Reason : Blood Pressure : */* mmHG Vent. Rate : 58 BPM Atrial Rate : 58 BPM P-R Int : 94 ms QRS Dur : 100 ms QT Int : 438 ms P-R-T Axes : 103 -19 148 degrees QTcB Int : 429 ms Sinus bradycardia Abnormal ECG When compared with ECG of 08-Mar-2024 11:19, (unconfirmed) T wave inversion now evident in Lateral leads Confirmed by Isma Lawrence ([id number]) on 08/15/2024 5:46:12 PM Referred By: REFERRED SELF Confirmed By: Isma Lawrence
[2024-08-15] MEDS ORDERED: LORazepam 2 MG/1 ML VIAL IV PRN (18:34)
[2024-08-15] MEDS ORDERED: POLYETHYLENE (MIRALAX) 17 GM PACK PO PRN (18:52)
[2024-08-15 19:40] LABS: Appearance Urine Clear (Clear); Bilirubin Urine Negative (Negative); Blood Urine Negative (Negative); Color Urine Yellow; Glucose Urine UA Negative (Negative); Ketones Urine Negative (Negative); Leukocyte Esterase Urine Negative (Negative); Nitrite Urine Negative (Negative); Protein Urine Negative (Negative); Urobilinogen Urine Negative (Negative); pH Urine 5.5 (4.5-7.5)
[2024-08-15] MEDS: MAGNESIUM SULFATE / D5W 1 GM/100 ML BAG IV ONE (19:42)
[2024-08-15] MEDS: PANTOprazole 40 MG/10 ML SYR IV SCH (19:44)
[2024-08-15] MEDS: SIMETHICONE 80 MG CHEW PO SCH (19:48)
[2024-08-15] MEDS: AMPICILLIN/SULBACTAM SOD 3,000 MG/100 ML BAG IV SCH (21:59)
[2024-08-16 02:54] LABS: Hematocrit (blood only) 34.8 % (42.0-52.0); Hemoglobin 12.2 g/dl (14.0-18.0); Mean Corpuscular Hemoglobin 31.8 pg (25.0-34.0); Mean Corpuscular Hgb Conc 35.1 g/dL (32.0-36.0); Mean Corpuscular Volume 90.6 fL (80.0-100.0); Mean Platelet Volume 10.2 fL (9.4-12.4); Platelet Count 190 K/uL (130-400); RDW Coefficient of Variation 13.3 % (11.5-14.5); RDW Standard Deviation 43.1 fL (36.4-46.3); Red Blood Count 3.84 M/uL (4.70-6.10); White Blood Count 19.45 K/ul (4.8-10.8)
[2024-08-16 03:05] LABS: Albumin Globulin Ratio 1.3 (0.9-2); Albumin Level 3.5 gm/dl (3.4-5.0); BUN Creatinine Ratio 14.7 (10-20); Bilirubin,Total 1.1 mg/dl (0.2-1.0); Calcium 8.6 mg/dl (8.6-10.3); Creatinine Clr Calc Pharmacy 47.8 ml/min; Globulin 2.7 gm/dl (2.5-4.0); Magnesium 1.5 mg/dl (1.7-2.4); Total Protein 6.2 gm/dl (6.0-8.3)
[2024-08-16] MEDS: HYDROmorphone INJ 0.5 MG/0.5 ML SYR IV PRN (03:47)
[2024-08-16] MEDS: LOSARTAN POTASSIUM 50 MG TAB PO SCH (08:11)
[2024-08-16] MEDS: ATORVASTATIN 10 MG TAB PO SCH (08:11)
--- NOTE | 2024-08-16 09:09 | Surgery Consultation ---
Date of Consultation August 16, 2024 Assessment & Plan (1) Acute cholecystitis due to biliary calculus: His CT and ultrasound images and results were personally viewed and interpreted by myself He does have a fairly distended gallbladder with mild pericholecystic infiltration on CT scan, this was not seen on ultrasound His CT scan findings coupled with his physical exam is strongly suggestive of cholecystitis He can have clear liquids for today, but would not advance further and I made him n.p.o. after midnight Continue IV antibiotics, he is on Unasyn Will plan on a laparoscopic cholecystectomy, possible open tomorrow (2) REMA (acute kidney injury): History of Present Illness Reason for Consultation: Gallbladder disease Attending Physician: Eric Lombardo MD History of Present Illness This is a 74-year-old male who came to the ER and was admitted with abdominal pain and found to have gallstones. He states that yesterday morning he woke up and had severe upper abdominal pain, sharp in nature with radiation to the back. This was accompanied with nausea and vomiting. No aggravating or relieving factors. He denies any fevers or chills. He denies any scleral icterus, jaundice, acholic stools or tea colored urine. He had an open colon resection for colon cancer almost 30 years ago, otherwise no abdominal surgeries. Allergies Allergy/AdvReac Type Severity Reaction Status Date / Time No Known Allergies Allergy Verified 03/08/24 11:26 Home Medications Medication Instructions Recorded Confirmed Type atorvastatin 10 mg tablet 10 mg PO QAM 07/01/18 08/15/24 History hydrochlorothiazide 12.5 mg capsule 12.5 mg PO QAM 07/01/18 08/15/24 History losartan 100 mg tablet 100 mg PO QAM 07/01/18 08/15/24 History omeprazole 20 mg tablet,delayed 20 mg PO BID 07/01/18 08/15/24 History release Patient History Medical History Aortic stenosis Ascending aorta dilatation Aortic root dilation LVH (left ventricular hypertrophy) Aortic stenosis due to bicuspid aortic valve H/O sleep apnea S/P UPPV Bicuspid aortic valve MILD BY 2020 ECHO Leukoplakia of vocal cords Laryngoscopies with scraping every 8 months History of colon cancer Acid reflux Hyperlipidemia Hypertension Surgical History H/O oral surgery UPPV for GEREMIAS History of laryngoscopy "44 SURGERIES FOR" Hx of colonoscopy History of colon resection w/umbilical hernia repair Family History Other Aortic aneurysm Social History Smoking Status: Never smoker Cigarettes Per Day: QUIT , H/O 1PPD; Second Hand Exposure: No; Do You Dip or Chew Tobacco: No; Hx Alcohol Use: Yes Alcohol type: beer and hard liquor Alcohol Intake Frequency: 4 or More x per/Week Alcohol Intake Frequency Comment: 3-4 drinks / night, denies h/o withdrawal Hx Substance Use: No Preferred Language: Georgian Communication Ability: Effective Visual Impairment: No Limitations Verification Rep Required: No Beliefs That Will Affect Care: None Current Living Situation: Spouse Other Information That Helps Us Care for You: No Feels Safe at Home: Yes Safety Concerns: Feels Safe At This Time Assistive Devices: Glasses Review of Systems Constitutional: no fever and no chills Eyes: no blind spots and no worsening vision Ear, Nose, Mouth, Throat: no ear pain and no hearing loss Respiratory: no cough and no dyspnea Cardiovascular: no chest pain and no dyspnea on exertion Gastrointestinal: + abdominal pain, + nausea and + vomitin g; no constipation and no diarrhea/loose stools Genitourinary: no dysuria, no difficulty urinating or no decreased urination Musculoskeletal: no back pain and no neck pain Integumentary: no acne, no lesions and no skin ulcer Neurologic: no gait abnormality and no headache(s) Psychiatric: no behavioral changes and no depression Hematologic / Lymphatic: no easy bleeding and no easy bruising Physical Exam Constitutional: WD/WN, vitals as above Eyes: PERRL, conjunctivae normal, anicteric sclerae ENMT: external ear and nose normal, oropharynx normal Neck: trachea midline, no thyromegaly Respiratory: normal respiratory effort, lungs clear to auscultation Cardiovascular: RRR, no murmur, no edema Gastrointestinal (Abdomen): Inspection/Auscultation: abdomen normal to inspection; abdomen not distended Percussion/Palpation: + abdomen tender (RUQ), + guarding and abdomen soft Positive Licea's Musculoskeletal: no cyanosis or clubbing, extremities motor strength 5/5 Skin: no rashes, warm and dry Neurologic: PERRL, EOMI, accommodation nl, no face palsy, no dysarthria Psychiatric: A+Ox3, euthymic affect Results & Data Vital Signs (Past 12 Hours) Vital Signs Temp Pulse Pulse Pulse Resp BP Pulse Ox 08/16/24 07:30 36.6 C 77 18 115/69 93 08/16/24 06:53 79 08/16/24 04:08 36.5 C 72 20 154/84 H 95 08/16/24 00:02 36.4 C L 73 20 145/75 H 96 08/16/24 00:00 70 O2 Del Method 08/16/24 07:30 Room Air 08/16/24 06:53 08/16/24 04:08 Room Air 08/16/24 00:02 Room Air 08/16/24 00:00 Diagnostic Findings US gallbladder CLINICAL HISTORY: Abdominal pain, ? Cholecystokinin on CT TECHNIQUE: Multiple real-time sonographic images of the right upper quadrant were obtained. Comparison: Comparison is made to CT abdomen pelvis 08/15/2024 FINDINGS: The liver is diffusely echogenic in appearance with poor ultrasound penetration, with normal contour, which is consistent with fatty infiltration. No focal mass lesions are seen. No intrahepatic ductal dilatation is seen. The gallbladder is distended with stones and sludge. No definite pericholecystic fluid is seen. The wall measures 2 mm. A sonographic Licea's sign was not elicited by the craft artist. The common duct measures 0.5 cm in diameter at the level of the hepatic artery. The visualized portions of the pancreas appear normal. The right kidney shows normal echogenicity, cortical thickness and renal contour. The right kidney shows no evidence of hydronephrosis or mass. No ascites or free fluid is seen in Desir's pouch. IMPRESSION: 1. Distended gallbladder with stones and sludge however no Licea's sign, wall thickening, or pericholecystic fluid is seen. 2. Hepatic steatosis. PG Care Time/CCT Total # of Minutes Spent Total Time Spent with Patient: Total time spent is greater than 50% in coordination of care (as documented) at patient's floor/unit and/or counseling patient: Coding Level of Care Code 09894 INT INP/OBS CARE 3/75MIN Diagnoses Acute cholecystitis due to biliary calculus K80.00 REMA (acute kidney injury) N17.9
--- NOTE | 2024-08-16 12:10 | Hospitalist Progress Note ---
Date of Service August 16, 2024 Assessment & Plan (1) Acute cholecystitis due to biliary calculus: Plan: This is a 74-year-old male with PMH of hypertension, hyperlipidemia, GERD, aortic stenosis, ascending aorta dilatation, remote h/o colon cancer and other m edical problems listed below who presents with abdominal pain since this morning. Afebrile, WBC 12 Tbili, AST, ALT all within normal limits CTA chest without thoracic aortic dissection. Aneurysmal dilatation of the ascending aorta measuring 4.8 cm at the level of the main pulmonary artery (following with [facility] cards for this) CTA abd/pelvis without evidence of aortic dissection GB ultrasound with distended gallbladder with stones and sludge however no Licea's sign, wall thickening, or pericholecystic fluid is seen. Pain consistent with biliary colic - IV fluids, analgesics, IV PPI, antiemetics, routine gen surg consult Has acute cholecystitis Appreciate surgery input and recommendation Will continue with current antibiotic and medications Laparoscopic/open cholecystectomy tomorrow (2) Cholelithiasis: (3) Abdominal pain: (4) Nausea and vomiting: (5) Hypomagnesemia: Plan: Mg 1.4. Replacing Repeat Mg in AM - magnesium level is minimally low at 1.5 Will supplement (6) Hypertension: Plan: Continue losartan, holding hctz in AM given dehydrated state 2/2 vomiting Manage potential etoh withdrawal Blood pressure is controlled (7) Troponin level elevated: Plan: HS trop 21 --> 24.[address] elevation, EKG with sinus bradycardia, prolonged qtc Monitor on tele, trend trops - unremarkable (8) Hyperlipidemia: Plan: Continue statin (9) Aortic stenosis due to bicuspid aortic valve: Plan: Mild, follows with [facility] cardiology (10) Ascending aorta dilatation: Plan: Chest CTA today without thoracic aortic dissection. Aneurysmal dilatation of the ascending aorta measuring 4.8 cm at the level of the main pulmonary artery Following with [facility] cardiology (11) Alcohol use disorder: Plan: Endorsing 3-4 drinks daily, denies h/o withdrawal AWSS protocol, PRN IV ativan since at risk for withdrawal (12) Elevated serum creatinine: Plan: Elevated Cr 1.41 (previous Cr here 1.1-1.4, baseline unknown) Monitor BMP (13) Leukoplakia of vocal cords: Plan: Follows with [facility] ENT (14) History of colon cancer: Plan: Remote hx, s/p colon resection and chemo DVT Ppx: SCDs for now Code status: FULL PCP: Ghada (REJI Hylton) Dispo: admitted to [facility] tele Admission and Anticipated Discharge Date Admission Date: August 15, 2024 Subjective 08/16/2024 The patient was seen and examined in medical telemetry unit He was admitted with abdominal pain and noted to have acute cholecystitis Has been feeling little better with improvement of abdominal pain and does not have any nausea no vomiting Awaiting surgery for tomorrow Review of Systems Review of Systems: All systems reviewed and are unremarkable except as noted below Physical Exam Physical Exam: Lying in bed with acute distress due to abdominal discomfort/pain Constitutional: well developed, well nourished, + ill appearing and + obese Eyes: PERRL, conjunctivae normal, anicteric sclerae ENMT: external ear and nose normal, oropharynx normal Neck: trachea midline, no thyromegaly Cardiovascular: Rate/Rhythm: regular rate and regular rhythm; not tachycardic Heart Sounds: normal S1 and normal S2; no murmur Extremities: no edema Gastrointestinal (Abdomen): Inspection/Auscultation: + abdomen distended and normal bowel sounds Percussion/Palpation: + abdomen tender ( right quadrants) and abdomen soft Musculoskeletal: No acute arthritis involving any of the joint Neurologic: normal touch/pain/proprioception and moves all extremities; no focal motor deficits Lymphatic: no cervical or axillary lymphadenopathy Results & Data Results & Data Vital Signs (Past 12 Hours) Vital Signs Temp Pulse Pulse Pulse Resp BP Pulse Ox 08/16/24 07:30 36.6 C 77 18 115/69 93 08/16/24 06:53 79 08/16/24 04:08 36.5 C 72 20 154/84 H 95 08/16/24 00:02 36.4 C L 73 20 145/75 H 96 08/16/24 00:00 70 O2 Del Method 08/16/24 07:30 Room Air 08/16/24 06:53 08/16/24 04:08 Room Air 08/16/24 00:02 Room Air 08/16/24 00:00 Laboratory Results Short CBC 08/15/24 08/16/24 Range/Units 12:10 02:04 WBC 12.50 H 19.45 H (4.8-10.8) K/ul Hgb 13.4 L 12.2 L (14.0-18.0) g/dl Hct 38.3 L 34.8 L (42.0-52.0) % Plt Count 202 190 (130-400) K/uL BMP 08/15/24 08/16/24 12:10 02:04 Sodium 136 137 Potassium 4.1 4.0 Chloride 102 105 Carbon Dioxide 23 23 BUN 21 24 H Creatinine 1.41 H 1.63 H Glucose 135 H 98 Calcium 9.5 8.6 Liver Function 08/15/24 08/16/24 Range/Units 12:10 02:04 Total Bilirubin 0.8 1.1 H (0.2-1.0) mg/dl AST 20 19 (13-39) U/L ALT 14 11 (7-52) U/L Alkaline Phosphatase 86 55 (34-104) U/L Albumin 4.2 3.5 (3.4-5.0) gm/dl Urine 08/15/24 Range/Units 19:29 Urine Color Yellow Urine Appearance Clear (Clear) Urine pH 5.5 (4.5-7.5) Ur Specific Victor 1.040 H (1.000-1.030) Urine Protein Negative (Negative) Urine Glucose (UA) Negative (Negative) Medications Administered Current Inpatient Medications Acetaminophen (Acetaminophen 500 Mg Tab) 1,000 mg PO Q8H [facility] Stop: 09/14/24 16:29 Last Admin: 08/16/24 08:20 Dose: 1,000 mg Atorvastatin Calcium (Atorvastatin 10 Mg Tab) 10 mg PO QAM [facility] Stop: 09/15/24 08:59 Last Admin: 08/16/24 08:11 Dose: 10 mg Hydromorphone HCl (Hydromorphone Inj 0.5 Mg/0.5 Ml Syr) 0.5 mg IV Q6H PRN PRN Reason: Severe Pain (Scale 7, 8, 9,10) Stop: 08/29/24 16:19 Last Admin: 08/16/24 03:47 Dose: 0.5 mg Pantoprazole Sodium (Protonix) 40 mg in 10 mls @ 5 mls/min IV BID [facility] Stop: 09/14/24 20:59 Last Admin: 08/16/24 08:12 Dose: 5 mls/min Promethazine HCl (Phenergan) 6.25 mg in 50.25 mls @ 201 mls/hr IV Q6H PRN PRN Reason: Nausea And Vomiting Stop: 09/14/24 18:00 Ampicillin Sodium/Sulbactam Sodium (Unasyn) 3,000 mg in 100 mls @ 200 mls/hr IV Q6H [facility] Stop: 08/25/24 19:29 Last Infusion: 08/16/24 07:10 Dose: Infused Lorazepam (Lorazepam 2 Mg/1 Ml Vial) 1 mg IV ONE PRN; Protocol PRN Reason: EtoH Withdrawal AWSS 6-10 Losartan Potassium (Losartan Potassium 50 Mg Tab) 100 mg PO QAM CHE Stop: 09/15/24 08:59 Last Admin: 08/16/24 08:11 Dose: 100 mg Polyethylene Glycol (Polyethylene (Miralax) 17 Gm Pack) 17 gm PO DAILY PRN PRN Reason: Constipation Stop: 09/14/24 18:51 Simethicone (Simethicone 80 Mg Chew) 80 mg PO Q6H CHE Stop: 08/16/24 18:59 Last Admin: 08/16/24 06:12 Dose: 80 mg (2) Cholelithiasis Biliary obstruction: without biliary obstruction Cholecystitis presence: without cholecystitis Cholelithiasis location: gallbladder Qualified Code(s): K80.20 - Calculus of gallbladder without cholecystitis without obstruction (6) Hypertension Hypertension type: primary hypertension Qualified Code(s): I10 - Essential (primary) hypertension (8) Hyperlipidemia Hyperlipidemia type: unspecified Qualified Code(s): E78.5 - Hyperlipidemia, unspecified
[2024-08-16] MEDS: SODIUM CHLORIDE 0.9% 1,000 ML IV SCH (12:49)
[2024-08-16] MEDS: MAGNESIUM SULFATE / D5W 1 GM/100 ML BAG IV ONE (13:15)
[2024-08-17 06:49] LABS: Basophils # (auto) 0.05 K/uL (0.00-0.20); Basophils % (auto) 0.3 %; Eosinophils # (auto) 0.02 K/uL (0.00-0.50); Eosinophils % (auto) 0.1 %; Hematocrit (blood only) 32.3 % (42.0-52.0); Hemoglobin 10.9 g/dl (14.0-18.0); Immature Granulocytes # (auto) 0.38 K/uL (0.01-0.20); Immature Granulocytes % (auto) 2.3 %; Lymphocytes # (auto) 0.97 K/uL (1.20-3.40); Lymphocytes % (auto) 5.9 %; Mean Corpuscular Hemoglobin 31.6 pg (25.0-34.0); Mean Corpuscular Hgb Conc 33.7 g/dL (32.0-36.0); Mean Corpuscular Volume 93.6 fL (80.0-100.0); Mean Platelet Volume 10.4 fL (9.4-12.4); Monocytes # (auto) 0.66 K/uL (0.11-0.59); Neutrophils % (auto) 87.4 %; Platelet Count 163 K/uL (130-400); RDW Coefficient of Variation 13.7 % (11.5-14.5); RDW Standard Deviation 46.9 fL (36.4-46.3); Red Blood Count 3.45 M/uL (4.70-6.10); White Blood Count 16.48 K/ul (4.8-10.8)
[2024-08-17 07:08] LABS: Albumin Globulin Ratio 1.1 (0.9-2); Albumin Level 3.1 gm/dl (3.4-5.0); BUN Creatinine Ratio 14.1 (10-20); Bilirubin,Total 0.8 mg/dl (0.2-1.0); Calcium 8.3 mg/dl (8.6-10.3); Creatinine Clr Calc Pharmacy 35.7 ml/min; Globulin 2.8 gm/dl (2.5-4.0); Magnesium 1.8 mg/dl (1.7-2.4); Total Protein 5.9 gm/dl (6.0-8.3)
[2024-08-17 09:22] LABS: iSTAT Blood Urea Nitrogen 20 mg/dl (7-18); iSTAT Chloride 102 mmol/L (101-112); iSTAT Creatinine 1.5 mg/dl (0.6-1.3); iSTAT Glucose 133 mg/dl (70-99); iSTAT Hematocrit 39 % (42-52); iSTAT Hemoglobin 13.3 g/dl (14.0-18.0); iSTAT Ionized Calcium 1.17 mmol/l (1.12-1.32); iSTAT Potassium 4.1 mmol/L (3.3-5.0); iSTAT Sodium 138 mmol/L (135-144)
[2024-08-17] MEDS ORDERED: PROPOFOL IV EMULSION 10 MG/ML 20 ML VIAL IV ONE (10:44)
[2024-08-17] MEDS ORDERED: DEXAMETHASONE SOD INJ 4 MG/ML VIAL ONE (10:44)
[2024-08-17] MEDS ORDERED: ONDANSETRON INJ 2 MG/ML 2 ML VIAL ONE (10:44)
[2024-08-17] MEDS ORDERED: LIDOCAINE 2% 2 ML VIAL/AMP(20MG/ML) INFIL ONE (10:44)
[2024-08-17] MEDS ORDERED: MIDAZOLAM HCL 1 MG/ML 2ML VIAL ONE (10:45)
[2024-08-17] MEDS ORDERED: fentaNYL citrate PF 100 MCG/2 ML VIAL ONE (10:45)
[2024-08-17] MEDS ORDERED: ROCURONIUM BROMIDE 10 MG/ML 5 ML VIAL IV ONE ×2 (10:46→12:47)
[2024-08-17] MEDS ORDERED: fentaNYL citrate PF 100 MCG/2 ML VIAL IV PRN (11:14)
[2024-08-17] MEDS ORDERED: HYDROmorphone INJ 2 MG/ML SYR/VIAL IV PRN (11:14)
[2024-08-17] MEDS ORDERED: ePHEDrine sulfate 50 MG/ML AMP IV PRN (11:14)
[2024-08-17] MEDS ORDERED: PROMETHAZINE HCL 6.25 MG in SODIUM CHLORIDE 0.9% 50 ML IV PRN (11:14)
[2024-08-17] MEDS ORDERED: ATROPINE SULFATE 0.1 MG/ML 10ML SYR IV PRN (11:14)
[2024-08-17] MEDS ORDERED: ONDANSETRON INJ 2 MG/ML 2 ML VIAL IV PRN (11:14)
--- NOTE | 2024-08-17 11:14 | Anesthesiology Consultation ---
Date of Service August 17, 2024 Assessment & Plan Chart Review Chart Review: Acceptable Risk for Surgery Consults Requested none History Surgery Operation Date: 08/17/24 07:00 Proposed Procedures p Laparoscopic Cholecystectomy, Possible Cholangiogram - Brian Perdue DO Height/Weight Height: 5 ft 10 in Weight: 101.7 kg Allergies Allergy/AdvReac Type Severity Reaction Status Date / Time No Known Allergies Allergy Verified 03/08/24 11:26 Medications Home Medications Medication Instructions Recorded Confirmed Last Taken atorvastatin 10 mg tablet 10 mg PO QAM 07/01/18 08/15/24 02/25/23 hydrochlorothiazide 12.5 mg capsule 12.5 mg PO QAM 07/01/18 08/15/24 02/25/23 losartan 100 mg tablet 100 mg PO QAM 07/01/18 08/15/24 02/25/23 omeprazole 20 mg tablet,delayed 20 mg PO BID 07/01/18 08/15/24 02/25/23 release Active Medications Generic Name Dose Route Start Last Admin Trade Name Freq PRN Reason Stop Dose Admin Acetaminophen 1,000 mg 08/15/24 16:30 08/17/24 07:35 Acetaminophen 500 Mg Tab PO 09/14/24 16:29 1,000 mg Q8H CHE Administration Atorvastatin Calcium 10 mg 08/16/24 09:00 08/17/24 07:36 Atorvastatin 10 Mg Tab PO 09/15/24 08:59 10 mg QAM CHE Administration Hydromorphone HCl 0.5 mg 08/15/24 16:20 08/16/24 18:35 Hydromorphone Inj 0.5 Mg/0.5 Ml Syr IV 08/29/24 16:19 0.5 mg Q6H PRN Administration Severe Pain (Scale 7, 8, 9,10) Pantoprazole Sodium 40 mg in 10 mls @ 5 mls/min 08/15/24 21:00 08/17/24 07:36 Protonix IV 09/14/24 20:59 5 mls/min BID CHE Administration Ampicillin Sodium/Sulbactam Sodium 3,000 mg in 100 mls @ 200 mls/hr 08/15/24 19:30 08/17/24 08:01 Unasyn IV 08/25/24 19:29 Infused Q6H CHE Infusion Sodium Chloride 1,000 mls @ 80 mls/hr 08/16/24 12:30 08/17/24 02:35 Nss IV 08/18/24 01:59 80 mls/hr .[id number] CHE Administration Losartan Potassium 100 mg 08/16/24 09:00 08/17/24 07:36 Losartan Potassium 50 Mg Tab PO 09/15/24 08:59 100 mg QAM CHE Administration NPO Date Last Intake of Fluids: 08/17/24 Time Last Intake of Fluids: 07:35 Last Intake of Fluids Comment: sip with pills otherwife before [place] Date Last Intake of Solids: 08/14/24 Last Intake of Solids Comment: clear liquids since 08/14/24 Past Medical History Medical History Aortic stenosis Ascending aorta dilatation Aortic root dilation LVH (left ventricular hypertrophy) Aortic stenosis due to bicuspid aortic valve H/O sleep apnea S/P UPPV Bicuspid aortic valve MILD BY 2020 ECHO Leukoplakia of vocal cords Laryngoscopies with scraping every 8 months History of colon cancer Acid reflux Hyperlipidemia Hypertension Past Family History Family History Other Aortic aneurysm Past Surgical History Surgical History H/O oral surgery UPPV for GEREMIAS History of laryngoscopy "44 SURGERIES FOR" Hx of colonoscopy History of colon resection w/umbilical hernia repair Social History Smoking Status: Never smoker tobacco type: cigarettes Smoking cigarettes per day: QUIT , H/O 1PPD Do You Dip or Chew Tobacco: No Hx Alcohol Use: Yes Alcohol type: beer and hard liquor alcohol intake frequency: 3 or more drinks per day Hx Substance Use: No substance use type: does not use Physical Exam Vital Signs Last Vital Signs Temp 36.6 C 08/17/24 10:39 Pulse 61 08/17/24 10:39 Resp 20 08/17/24 10:39 BP 121/69 08/17/24 10:39 Pulse Ox 95 08/17/24 10:39 O2 Del Method Room Air 08/17/24 10:39 Testing Laboratory Results 08/17/24 05:40 08/17/24 05:40 PT 10.6 Seconds (9.0-12.0) 08/15/24 12:10 INR 1.0 (0.9-1.1) 08/15/24 12:10 APTT 24 Seconds (21-31) 08/15/24 12:10 Urine Color Yellow 08/15/24 19:29 Urine Appearance Clear (Clear) 08/15/24 19:29 Urine pH 5.5 (4.5-7.5) 08/15/24 19:29 Ur Specific Addison 1.040 (1.000-1.030) H 08/15/24 19:29 Urine Protein Negative (Negative) 08/15/24 19:29 Urine Glucose (UA) Negative (Negative) 08/15/24 19:29 Urine Ketones Negative (Negative) 08/15/24 19: Urine Nitrite Negative (Negative) 08/15/24 19:29 Ur Leukocyte Esterase Negative (Negative) 08/15/24 19:29 08/15/24 12:15 POC Glucose (other) 133 H
--- NOTE | 2024-08-17 11:33 | Surgery Progress Note ---
Date of Service August 17, 2024 Assessment & Plan (1) Acute cholecystitis due to biliary calculus: Plan: Will proceed with a laparoscopic cholecystectomy, possible open, possible cholangiogram today Consent was obtained, risks discussed including bleeding, infection, ductal injury, bile leak Admission and Anticipated Discharge Date Admission Date: August 15, 2024 Subjective Patient seen exam. Pain seems a little better. Afebrile. No nausea or vomiting. Review of Systems Constitutional: no fever and no chills Eyes: no blind spots and no worsening vision Ear, Nose, Mouth, Throat: no ear pain and no hearing loss Respiratory: no cough and no dyspnea Cardiovascular: no chest pain and no dyspnea on exertion Gastrointestinal: + abdominal pain, + nausea and + vomitin g; no constipation and no diarrhea/loose stools Genitourinary: no dysuria, no difficulty urinating or no decreased urination Musculoskeletal: no back pain and no neck pain Integumentary: no acne, no lesions and no skin ulcer Neurologic: no gait abnormality and no headache(s) Psychiatric: no behavioral changes and no depression Hematologic / Lymphatic: no easy bleeding and no easy bruising Physical Exam Constitutional: WD/WN, vitals as above Eyes: PERRL, conjunctivae normal, anicteric sclerae ENMT: external ear and nose normal, oropharynx normal Neck: trachea midline, no thyromegaly Respiratory: normal respiratory effort, lungs clear to auscultation Cardiovascular: RRR, no murmur, no edema Gastrointestinal (Abdomen): Inspection/Auscultation: abdomen normal to inspection; abdomen not distended Percussion/Palpation: + abdomen tender (RUQ), + guarding and abdomen soft Positive Licea's Musculoskeletal: no cyanosis or clubbing, extremities motor strength 5/5 Skin: no rashes, warm and dry Neurologic: PERRL, EOMI, accommodation nl, no face palsy, no dysarthria Psychiatric: A+Ox3, euthymic affect Results & Data Vital Signs (Past 12 Hours) Vital Signs Temp Pulse Pulse Pulse Resp BP Pulse Ox 08/17/24 10:39 36.6 C 61 20 121/69 95 08/17/24 08:14 08/17/24 07:22 36.5 C 72 18 136/78 94 08/17/24 06:55 64 08/17/24 04:41 36.3 C L 68 20 122/72 93 O2 Del Method 12/26/24 10:39 Room Air 08/17/24 08:14 Room Air 08/17/24 07:22 Room Air 08/17/24 06:55 08/17/24 04:41 Room Air PG Care Time/CCT Total # of Minutes Spent Total Time Spent with Patient: Total time spent is greater than 50% in coordination of care (as documented) at patient's floor/unit and/or counseling patient: Coding Level of Care Code 47737 SUB INP/OBS CARE 2/35MIN Diagnoses Acute cholecystitis due to biliary calculus K80.00
[2024-08-17] MEDS ORDERED: SUGAMMADEX SODIUM 200 MG/2 ML VIAL IV ONE (13:36)
[2024-08-17] MEDS: FLOSEAL HEMOSTATIC MATRIX 10ML TOP ONE (13:48)
--- NOTE | 2024-08-17 14:03 | Post Operative Brief Note ---
PG Immediate Post Op with CF Date of Surgery August 17, 2024 Pre & Post Diagnosis Operation Date: 08/17/24 07:00 Pre-Op Diagnosis: Acute cholecystitis due to biliary calculus Post-Op Diagnosis: Acute Gangrenous Cholecystitis I identified the patient and participated in the time-out.: Yes Procedure Operation Date: 08/17/24 07:00 Actual Procedures p Laparoscopic Cholecystectomy(Not Applicable) - Brian Perdue DO Surgeon Brian Perdue DO Pharmaceutical Detailer Sunni Benjamin PA-C Estimated Blood Loss 100 Findings See Below Acutely inflamed dilated gallbladder, gangrenous cholecystitis Specimens Specimen Description: A. Gallbladder and contents Drains Brian Drain (15Fr) Anesthesia Type General Complications none Disposition Disposition: Recovery Room
[2024-08-17] MEDS: BUPIVACAINE/EPINEPHRINE 0.25% 1:200,000 30 ML VIAL ONE (14:05)
--- NOTE | 2024-08-17 14:07 | Hospitalist Progress Note ---
Date of Service August 17, 2024 Assessment & Plan (1) Acute cholecystitis due to biliary calculus: Plan: This is a 74-year-old male with PMH of hypertension, hyperlipidemia, GERD, aortic stenosis, ascending aorta dilatation, remote h/o colon cancer and other m edical problems listed below who presents with abdominal pain since this morning. Afebrile, WBC 12 Tbili, AST, ALT all within normal limits CTA chest without thoracic aortic dissection. Aneurysmal dilatation of the ascending aorta measuring 4.8 cm at the level of the main pulmonary artery (following with [facility] cards for this) CTA abd/pelvis without evidence of aortic dissection GB ultrasound with distended gallbladder with stones and sludge however no Licea's sign, wall thickening, or pericholecystic fluid is seen. Pain consistent with biliary colic - IV fluids, analgesics, IV PPI, antiemetics, routine gen surg consult Has acute cholecystitis Appreciate surgery input and recommendation Will continue with current antibiotic and medications Laparoscopic/open cholecystectomy tomorrow Remains medically stable and will have cholecystectomy this afternoon (2) Cholelithiasis: (3) Abdominal pain: Plan: Abdominal pain seems to be controlled (4) Nausea and vomiting: Plan: No significant nausea and/or vomiting (5) Hypomagnesemia: Plan: Mg 1.4. Replacing Repeat Mg in AM - magnesium level is minimally low at 1.5 Will supplement (6) Hypertension: Plan: Continue losartan, holding hctz in AM given dehydrated state 2/2 vomiting Manage potential etoh withdrawal Blood pressure is controlled (7) Troponin level elevated: Plan: HS trop 21 --> 24.[address] elevation, EKG with sinus bradycardia, prolonged qtc Monitor on tele, trend trops - unremarkable (8) Hyperlipidemia: Plan: Continue statin (9) Aortic stenosis due to bicuspid aortic valve: Plan: Mild, follows with [facility] cardiology (10) Ascending aorta dilatation: Plan: Chest CTA today without thoracic aortic dissection. Aneurysmal dilatation of the ascending aorta measuring 4.8 cm at the level of the main pulmonary artery Following with 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 ENT (14) History of colon cancer: Plan: Remote hx, s/p colon resection and chemo DVT Ppx: SCDs for now Code status: FULL PCP: Ghada (REJI Hylton) Dispo: admitted to [facility] tele Admission and Anticipated Discharge Date Admission Date: August 15, 2024 Subjective 08/16/2024 The patient was seen and examined in medical telemetry unit He was admitted with abdominal pain and noted to have acute cholecystitis Has been feeling little better with improvement of abdominal pain and does not have any nausea no vomiting Awaiting surgery for tomorrow 08/17/2024 The patient was seen and examined in medical telemetry unit He continues to have some pain in the right quadrants Denies any nausea and/or vomiting and does not have any fever and/or chills Review of Systems Review of Systems: All systems reviewed and are unremarkable except as noted below Physical Exam Physical Exam: Lying in bed with acute distress due to abdominal discomfort/pain Constitutional: well developed, well nourished, + ill appearing and + obese Eyes: PERRL, conjunctivae normal, anicteric sclerae ENMT: external ear and nose normal, oropharynx normal Neck: trachea midline, no thyromegaly Cardiovascular: Rate/Rhythm: regular rate and regular rhythm; not tachycardic Heart Sounds: normal S1 and normal S2; no murmur Extremities: no edema Gastrointestinal (Abdomen): Inspection/Auscultation: + abdomen distended and normal bowel sounds Percussion/Palpation: + abdomen tender ( right quadrants) and abdomen soft Musculoskeletal: No acute arthritis involving any of the joint Neurologic: normal touch/pain/proprioception and moves all extremities; no focal motor deficits Lymphatic: no cervical or axillary lymphadenopathy Results & Data Results & Data Vital Signs (Past 12 Hours) Vital Signs Temp Pulse Pulse Pulse Resp BP Pulse Ox 08/17/24 10:39 36.6 C 61 20 121/69 95 08/17/24 08:14 08/17/24 07:22 36.5 C 72 18 136/78 94 08/17/24 06:55 64 08/17/24 04:41 36.3 C L 68 20 122/72 93 O2 Del Method 08/17/24 10:39 Room Air 08/17/24 08:14 Room Air 08/17/24 07:22 Room Air 08/17/24 06:55 08/17/24 04:41 Room Air Laboratory Results Short CBC 08/17/24 Range/Units 05:40 WBC 16.48 H (4.8-10.8) K/ul Hgb 10.9 L (14.0-18.0) g/dl Hct 32.3 L (42.0-52.0) % Plt Count 163 (130-400) K/uL BMP 08/17/24 05:40 Sodium 138 Potassium 4.0 Chloride 105 Carbon Dioxide 28 BUN 31 H Creatinine 2.20 H D Glucose 97 Calcium 8.3 L Liver Function 08/17/24 Range/Units 05:40 Total Bilirubin 0.8 (0.2-1.0) mg/dl AST 23 (13-39) U/L ALT 10 (7-52) U/L Alkaline Phosphatase 57 (34-104) U/L Albumin 3.1 L (3.4-5.0) gm/dl Medications Administered Current Inpatient Medications Acetaminophen (Acetaminophen 500 Mg Tab) 1,000 mg PO Q8H CHE Stop: 09/14/24 16:29 Last Admin: 08/17/24 07:35 Dose: 1,000 mg Atorvastatin Calcium (Atorvastatin 10 Mg Tab) 10 mg PO QAM CHE Stop: 09/15/24 08:59 Last Admin: 08/17/24 07:36 Dose: 10 mg Atropine Sulfate (Atropine Sulfate 0.1 Mg/Ml 10ml Syr) 0.5 mg IV Q1M PRN PRN Reason: PACU Use-HR<40 &/or Bradycardi Stop: 08/17/24 19:14 Ephedrine Sulfate (Ephedrine Sulfate 50 Mg/Ml Amp) 5 mg IV Q5M PRN PRN Reason: PACU Use Only-SBP<90 mmHg Stop: 08/17/24 19:14 Fentanyl Citrate (Fentanyl Citrate Pf 100 Mcg/2 Ml Vial) 50 mcg IV Q5M PRN PRN Reason: PACU Use Only-Pain Stop: 08/17/24 19:14 Hydromorphone HCl (Hydromorphone Inj 0.5 Mg/0.5 Ml Syr) 0.5 mg IV Q6H PRN PRN Reason: Severe Pain (Scale 7, 8, 9,10) Stop: 08/29/24 16:19 Last Admin: 08/16/24 18:35 Dose: 0.5 mg Hydromorphone HCl (Hydromorphone Inj 2 Mg/Ml Syr/Vial) 0.5 mg IV Q5M PRN PRN Reason: PACU Use Only-Pain Stop: 08/17/24 19:14 Pantoprazole Sodium (Protonix) 40 mg in 10 mls @ 5 mls/min IV BID [facility] Stop: 09/14/24 20:59 Last Admin: 08/17/24 07:36 Dose: 5 mls/min Promethazine HCl (Phenergan) 6.25 mg in 50.25 mls @ 201 mls/hr IV Q6H PRN PRN Reason: Nausea And Vomiting Stop: 09/14/24 18:00 Ampicillin Sodium/Sulbactam Sodium (Unasyn) 3,000 mg in 100 mls @ 200 mls/hr IV Q6H [facility] Stop: 08/25/24 19:29 Last Infusion: 08/17/24 08:01 Dose: Infused Sodium Chloride (Nss) 1,000 mls @ 80 mls/hr IV .[id number] [facility] Stop: 08/18/24 01:59 Last Infusion: 08/17/24 11:51 Dose: Infused Promethazine HCl 6.25 mg/ (Sodium Chloride) 50.25 mls @ 204 mls/hr IV ONCE PRN PRN Reason: PACU Use Only-Nausea/Vomiting Stop: 08/17/24 19:14 Lorazepam (Lorazepam 2 Mg/1 Ml Vial) 1 mg IV ONE PRN; Protocol PRN Reason: EtoH Withdrawal AWSS 6-10 Losartan Potassium (Losartan Potassium 50 Mg Tab) 100 mg PO QAM [facility] Stop: 09/15/24 08:59 Last Admin: 08/17/24 07:36 Dose: 100 mg Ondansetron HCl (Ondansetron Inj 2 Mg/Ml 2 Ml Vial) 4 mg IV ONCE PRN PRN Reason: PACU Use Only-Nausea/Vomiting Stop: 08/17/24 19:14 Polyethylene Glycol (Polyethylene (Miralax) 17 Gm Pack) 17 gm PO DAILY PRN PRN Reason: Constipation Stop: 09/14/24 18:51 (2) Cholelithiasis Biliary obstruction: without biliary obstruction Cholecystitis presence: without cholecystitis Cholelithiasis location: gallbladder Qualified Code(s): K80.20 - Calculus of gallbladder without cholecystitis without obstruction (6) Hypertension Hypertension type: primary hypertension Qualified Code(s): I10 - Essential (primary) hypertension (8) Hyperlipidemia Hyperlipidemia type: unspecified Qualified Code(s): E78.5 - Hyperlipidemia, unspecified
--- NOTE | 2024-08-17 14:08 | Operative Report ---
PG Post Operative Report Pre & Post Diagnosis Operation Date: 08/17/24 07:00 Pre-Op Diagnosis: Acute cholecystitis due to biliary calculus Postop diagnosis: Acute gangrenous cholecystitis I identified the patient and participated in the time-out.: Yes Procedure Operation Date: 08/17/24 07:00 Actual Procedures p Laparoscopic Cholecystectomy(Not Applicable) - Brian Perdue DO Surgeon Brian Perdue DO Securities Underwriter Sunni Benjamin PA-C Estimated Blood Loss 100 Findings See Below Acutely inflamed dilated gallbladder, gangrenous cholecystitis Fluids see anesthesia record Specimens Gallbladder pathology Drains 15 [place] Brian drain right upper quadrant Anesthesia Type General Complications none Disposition Disposition: Recovery Room Indications 74-year-old male with acute cholecystitis Description of Procedure The patient was brought to the operating room and placed in the supine position with both arms extended. At this time she underwent general endotracheal anesthesia without any problems. She was given appropriate pre-operative antibiotics. Her abdomen prepped and draped in the usual sterile fashion. A timeout was called, the procedure was verified as Laparoscopic cholecystectomy, possible open, possible intra-operative cholangiogram. Surgical, nursing and anesthesia teams agreed and the procedure was begun. After injection of 0.25% Marcaine with epinephrine, a supraumbilical vertical incision was made and carried down to the fascia using S-retractors. The abdominal wall was then elevated with towel clamps and abdomen entered using the Veress needle confirming position using the saline drop test. Pneumoperitoneum was established. 5mm trocar was placed. Laparoscope was introduced. No injury from entry into the abdomen was visualized after inspection of the abdomen. Three further ports were placed under direct visualization. One 11mm in the sub xiphoid region and two 5mm in the RUQ. At this time the abdomen was inspected and the gallbladder identified. The gallbladder was inflamed, dilated and gangrenous. Change the omentum was densely adhered to the liver edge of the gallbladder itself as well as falciform ligament. This was taken down using sharp and blunt dissection. This 1 further port in the midline was placed under direct visualization. This was a 5 mm port and a fan retractor was introduced in order to retract the omentum posteriorly in order to visualize the infundibulum. The gallbladder fundus was grasped and retracted cephalad. The gallbladder infundibulum was then grasped and retracted laterally. The cystic duct and cystic artery were then identified and skeletonized. The critical view of safety was obtained. They were both then clipped twice proximally and once distally and then divided using scissors. The gallbladder was then taken off of the liver bed using electrocautery and placed in an endocatch bag and removed from the subxiphoid port. The liver bed was then inspected and no bile leak or bleeding was evident. A 15 Fr Brian drain was introduced into the abdomen through the subxiphoid port and brought out through the right lateral abdominal port and sutured into place using 2-0 nylon. A drain was placed in the gallbladder fossa. The trocars were then removed under direct visualization and no bleeding was present. The subxiphoid port was then closed using 0-Vicryl in a running fashion. Abdomen was desufflated. The skin was then closed using 4-0 Monocryl in a subcuticular fashion. Surgical glue was applied. Needle and sponge counts were correct x 2. At this time the patient was awoken from anesthesia and extubated having remained stable throughout the entire case. The patient was then transported to PACU in stable condition. The physician judicial administrative assistant was present and scrubbed for the entire case. She was essential in positioning, prepping and draping the patient, retraction exposure, driving the laparoscope, closure of the incisions and placement of dressings. I attest to the content of the Intraoperative Record and any orders documented therein. Any exceptions are noted below.
[2024-08-17] MEDS ORDERED: HYDROmorphone INJ 0.5 MG/0.5 ML SYR IV PRN (15:32)
[2024-08-17] MEDS ORDERED: HYDROmorphone INJ 1 MG/ML SYRINGE IV PRN (15:32)
[2024-08-17] MEDS ORDERED: oxyCODONE HCL IR 5 MG TAB (IMMEDIATE RELEASE) PO PRN (15:32)
[2024-08-17] MEDS: PROMETHAZINE 6.25 MG/50.25 ML BAG IV PRN (16:14)
--- NOTE | 2024-08-17 16:42 | Anesthesiology Progress Note ---
Date of Service August 17, 2024 Anesthesia Post Procedure Vital Signs Vital Signs: Temp Pulse Pulse Pulse Resp BP Pulse Ox 08/17/24 16:15 36.3 C L 70 18 152/84 H 96 08/17/24 15:45 36.3 C L 68 136/78 94 08/17/24 15:20 69 17 124/74 93 08/17/24 15:10 68 18 120/70 92 08/17/24 15:00 67 20 121/67 93 08/17/24 14:50 36.3 C L 68 19 118/72 92 08/17/24 14:40 67 20 121/65 93 08/17/24 14:30 66 22 114/61 91 08/17/24 14:21 36.2 C L 110 H 26 H 111/76 92 08/17/24 10:39 36.6 C 61 20 121/69 95 08/17/24 08:14 08/17/24 07:22 36.5 C 72 18 136/78 94 08/17/24 06:55 64 08/17/24 04:41 36.3 C L 68 20 122/72 93 08/16/24 23:16 36.5 C 82 20 131/73 97 08/16/24 21:59 73 08/16/24 20:08 36.5 C 63 20 126/81 94 O2 Del Method O2 Flow Rate 08/17/24 16:15 Nasal Cannula 1 08/17/24 15:45 Nasal Cannula 2 08/17/24 15:20 Nasal Cannula 2 08/17/24 15:10 Nasal Cannula 2 08/17/24 15:00 Nasal Cannula 2 08/17/24 14:50 Nasal Cannula 2 08/17/24 14:40 Nasal Cannula 2 08/17/24 14:30 Room Air 08/17/24 14:21 Oxymask 10 08/17/24 10:39 Room Air 08/17/24 08:14 Room Air 08/17/24 07:22 Room Air 08/17/24 06:55 08/17/24 04:41 Room Air 08/16/24 23:16 Room Air 08/16/24 21:59 08/16/24 20:08 Room Air Pain Intensity Upper Abdomen: Pain Intensity: 5 Transfer of Care Handoff Completed per policy Notes Mental Status: alert / awake / arousable and participated in evaluation Patient Amnestic to Procedure: Yes Nausea / Vomiting: adequately controlled Pain: adequately controlled Airway Patency, RR, SpO2: stable & adequate BP & HR: stable & adequate Hydration State: stable & adequate Anesthetic Complications: no major complications apparent
[2024-08-17] MEDS: oxyCODONE HCL IR 5 MG TAB (IMMEDIATE RELEASE) PO PRN (18:04)
[2024-08-17 23:06] VITALS: RESP 18
[2024-08-18 07:33] VITALS: O2SAT 96
--- NOTE | 2024-08-18 08:00 | Surgery Progress Note ---
Date of Service August 18, 2024 Assessment & Plan (1) Acute cholecystitis due to biliary calculus: Plan: POD#1 lap marianela labs are pending this AM. vitals are stable tolerating clears, hungry for more incisions c/d/i, ALVIN drain serosang- 65cc documented Recommend keeping drain in upon dispo and f/u next wk in the office for removal May benefit from a small course of abx given it was a bad gallbladder if blood work returns with no acute concerns he may dispo. d/c instructions reviewed Admission and Anticipated Discharge Date Admission Date: August 15, 2024 Supervising Physician Co-Signing Physician Notes He is doing well day 1 after lap marianela Will leave drain in place, he will go home with this Will check back on him and as long as he tolerates his lunch and vitals and labs look good, he can be discharged from a surgical standpoint He should go on 10 days of oral antibiotics and I will have him follow-up in my office next week for possible drain removal Subjective Patient feeling fairly well. Pain controlled. Tolerating clears, no nausea/vomiting. Some pain primarily around his drain site. Physical Exam Physical Exam: awake/alert, no distress Respiratory: normal respiratory effort Gastrointestinal (Abdomen): Inspection/Auscultation: + abdomen distended, + abdominal surgical incision (c/d/i with skin glue) and + abdominal surgical drain present (serosang, 65cc documented) Percussion/Palpation: + abdomen tender (expected austen incisional discomfort and discomfort around drain site) and abdomen soft Results & Data Vital Signs (Past 12 Hours) Vital Signs Temp Pulse Pulse Resp BP BP Pulse Ox 08/18/24 07:51 57 L 08/18/24 07:32 98.2 F 52 L 18 157/80 H 96 08/18/24 03:21 97.7 F 56 L 18 114/62 90 08/17/24 23:05 97.3 F L 64 18 114/63 93 08/17/24 23:04 08/17/24 21:55 59 L O2 Del Method 08/18/24 07:51 08/18/24 07:32 Room Air 08/18/24 03:21 Room Air 08/17/24 23:05 Room Air 08/17/24 23:04 Room Air 08/17/24 21:55 PG Care Time/CCT Total # of Minutes Spent Total Time Spent with Patient: Total time spent is greater than 50% in coordination of care (as documented) at patient's floor/unit and/or counseling patient: Coding Level of Care Code 35343 Post Operative Follow-Up Diagnoses Acute cholecystitis due to biliary calculus K80.00
[2024-08-18 10:36] LABS: Albumin Level 3.3 gm/dl (3.4-5.0); BUN Creatinine Ratio 15.1 (10-20); Bilirubin,Total 0.4 mg/dl (0.2-1.0); Calcium 8.3 mg/dl (8.6-10.3); Creatinine Clr Calc Pharmacy 45.6 ml/min; Globulin 3.3 gm/dl (2.5-4.0); Phosphorus 2.3 mg/dl (2.5-4.9); Potassium 4.1 mmol/L (3.5-5.1); Total Protein 6.6 gm/dl (6.0-8.3)
[2024-08-18 10:44] LABS: Hematocrit (blood only) 32.4 % (42.0-52.0); Hemoglobin 10.8 g/dl (14.0-18.0); Mean Corpuscular Hemoglobin 31.1 pg (25.0-34.0); Mean Corpuscular Hgb Conc 33.3 g/dL (32.0-36.0); Mean Corpuscular Volume 93.4 fL (80.0-100.0); Mean Platelet Volume 10.9 fL (9.4-12.4); Platelet Count 174 K/uL (130-400); RDW Coefficient of Variation 13.3 % (11.5-14.5); RDW Standard Deviation 45.6 fL (36.4-46.3); Red Blood Count 3.47 M/uL (4.70-6.10); White Blood Count 15.76 K/ul (4.8-10.8)
[2024-08-18 11:16] LABS: Basophils # (auto) 0.02 K/uL (0.00-0.20); Basophils % (auto) 0.1 %; Echinocytes 1+; Eosinophils # (auto) 0.01 K/uL (0.00-0.50); Eosinophils % (auto) 0.1 %; Immature Granulocytes % (auto) 1.3 %; Lymphocytes # (auto) 0.62 K/uL (1.20-3.40); Lymphocytes % (auto) 3.9 %; Monocytes # (auto) 0.49 K/uL (0.11-0.59); Monocytes % (auto) 3.1 %; Neutrophils # (auto) 14.42 K/uL (1.40-6.50); Neutrophils % (auto) 91.5 %; Polychromasia 1+
[2024-08-18 11:26] VITALS: BP 144/83; TEMP 97.7
--- NOTE | 2024-08-18 13:26 | Discharge Summary ---
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 Abdominal Pain Acute Cholecystitis Afebrile, WBC 12 Tbili, AST, ALT all within normal limits CTA chest without thoracic aortic dissection. Aneurysmal dilatation of the ascending aorta measuring 4.8 cm at the level of the main pulmonary artery (following with [facility] [place] this) CTA abd/pelvis without evidence of aortic dissection Gallbladder ultrasound with distended gallbladder with stones and sludge however no Licea's sign, wall thickening, or pericholecystic fluid is seen. Pain consistent with biliary colic - IV fluids, analgesics, IV PPI, antiemetics General surgery consulted, recommended/stated the following: -s/p Laparoscopic Cholecystectomy on 08/17/24 -Noted the following on the day of discharge: "He is doing well day 1 after lap marianela.... Will leave drain in place, he will go home with this...He should go on 10 days of oral antibiotics and I will have him follow-up in my office next week for possible drain removal..." per general surgery patient discharged with Augmentin 875 mg twice daily for 10 days as well as as needed oxycodone for pain. Please ensure close follow-up with general surgery after discharge Acute on possible chronic Kidney Disease Elevated Cr 1.41 on admission (previous Cr here 1.1-1.4, baseline unknown) Peaked at 2.20 Downtrended after IV fluids Cr of 1.72 on discharge Close PCP follow-up after discharge, will likely need outpatient nephrology follow-up as well. Hypomagnesemia Hypophosphatemia Replete as needed Troponin level elevated HS trop 21 --> 24.6-->[address] elevation, EKG with sinus bradycardia, prolonged qtc Likely demand in the setting of above vs. inability to excrete in the setting of kidney disease Aortic stenosis due to bicuspid aortic valve Mild, follows [place] [facility] Please ensure close followup HLD Continue home statin Ascending aorta dilatation Chest CTA without thoracic aortic dissection Aneurysmal dilatation of the ascending aorta measuring 4.8 cm at the level of the main pulmonary artery Following [place] [facility] Please ensure close followup Hypertension In the setting of aortic dilatation noted above, tight blood pressure control needed Continue losartan, hctz Close PCP follow-up as needed given use of losartan and hydrochlorothiazide with REMA, much improved Alcohol use disorder Endorsing 3-4 drinks daily, denies h/o withdrawal AWSS protocol PRN IV ativan since at risk for withdrawal PCP follow-up Encourage cessation Leukoplakia of vocal cords Follows with [facility] History of colon cancer Remote hx, s/p colon resection and chemo Notes For Next Care Provider Per General Surgery- pt discharged with drain, with followup in the week after discharge for possible drain removal Please ensure close monitoring of kideny function and blood pressure- consider Nephrology followup as an outpatient Medication Changes From Visit Per General Surgery: Augmentin 875mg BID x 10 days Oxycodone 5mg q4-q6h prn for pain Admission HPI Per Admitting Provider This is a 74-year-old male with PMH of hypertension, hyperlipidemia, GERD, aortic stenosis, ascending aorta dilatation, remote h/o colon cancer and other medical problems listed below who presents with abdominal pain since this morning. Woke up this AM with abdominal pressure, centrally located. Walked the dogs to see if it would feel better but got worse. Vomited twice from pain. Feels bloated, pain is constant. Had a normal bowel movement around 0300 and at that time did not have abdominal pain. No diarrhea. No F/C, cough, CP, palpitations, SOB, or dysuria. Admission Exam Per Admitting Provider General: Well hydrated Eyes: PERRL, conjunctivae normal, not pale, anicteric sclerae, EOM intact bilaterally ENMT: External ear and nose normal, oropharynx normal Respiratory: Normal respiratory effort, no respiratory distress, lungs clear to auscultation, no crackles and no wheezes Cardiovascular: RRR S1 S2 Gastrointestinal (Abdomen): Abdomen is mildly distended, soft, +epigastric tenderness Musculoskeletal: No pedal edema Neurologic: No focal weakness, sensation grossly intact Psychiatric: Alert and oriented x 3, euthymic affect Discharge Exam General: Alert, oriented. No acute distress Psych: Appropriate mood and affect Neuro: No gross deficits, sitting in chair at bedside postop HEENT: NC/AT CV: RRR Resp: Breath sounds clear bilaterally, no increased effort of breathing Abdomen: protuberant, surgical scars without signs of infection, drain in place Extremities: No edema in lower extremities bilaterally. Updated Medication List Medication Instructions Recorded Confirmed Type atorvastatin 10 mg tablet 10 mg PO QAM 07/01/18 08/15/24 History hydrochlorothiazide 12.5 mg capsule 12.5 mg PO QAM 07/01/18 08/15/24 History losartan 100 mg tablet 100 mg PO QAM 07/01/18 08/15/24 History omeprazole 20 mg tablet,delayed 20 mg PO BID 07/01/18 08/15/24 History release oxycodone 5 mg tablet 5 - 10 mg (1 - 2 x 5 mg) PO 08/17/24 Rx .[id number] PRN pain, for initial therapy, max 6 tabs per day #15 tabs amoxicillin 875 mg-potassium 1 tab PO BID #20 tabs 08/18/24 Rx clavulanate 125 mg tablet Hospital Stay Data Consultations 08/15/24 15:51 ED Decision to Admit Stat 08/15/24 16:29 Consult General Surgery Routine Procedures Performed Operation Date: 08/17/24 07:00 Actual Procedures p Laparoscopic Cholecystectomy(Not Applicable) - Brian Perdue, Diagnostic Imagining Performed 08/15/24 12:08 CT angio abdomen pelvis w con Stat CT angio chest dissec wo/w con Stat 08/15/24 13:22 US gallbladder Stat Abdomen/Pelvis CTA 08/15/24 12:08 CT angio abdomen pelvis w con CLINICAL HISTORY: Chest pain, abdominal pain - eval dissection TECHNIQUE: Multidetector row helical CT of the abdomen and pelvis was performed, following intravenous administration of iodinated contrast. No oral contrast was administered. Automated dose lowering techniques and/or adjustment according to patient size were utilized for this exam. Coronal and sagittal reformations were obtained. MIP and 3D volume rendered reconstructions were obtained. CT DOSE: 2938.51 mGy.cm Comparison: Comparison is made to CT abdomen pelvis 08/15/2024 FINDINGS: Lower chest: Bibasilar atelectasis versus scarring is seen. Liver: Unremarkable. No focal lesions are seen. Gallbladder and biliary tree: No calcified gallstones. Normal caliber wall. No intra- or extrahepatic biliary ductal dilation. Pancreas: Fatty replacement of the pancreas is seen. Spleen: Unremarkable. Adrenals: Unremarkable. Kidneys and ureters: Exophytic cysts are seen. Bladder: Unremarkable. Reproductive organs: Unremarkable. Bowel: Postsurgical changes are seen about the sigmoid flexure. Patient is status post appendectomy. Lymph nodes Retroperitoneal: Unremarkable. Pelvic: Unremarkable. Mesenteric: Unremarkable. Peritoneum: Normal. Abdominal wall: Bilateral fat-containing inguinal hernias are seen. Bones: Degenerative changes in the visualized spine. CT angiogram: The abdominal aortic contours appear intact without evidence of aneurysmal dilatation and/or dissection. No significant atherosclerosis is seen. The origins of the celiac axis, superior mesenteric, inferior mesenteric and bilateral renal arteries are patent. IMPRESSION: No acute abnormalities and in particular no evidence of aortic dissection. ACT 112: Negative or not required by law. Electronically signed by: Patrick Valles M.D. 08/15/2024 12:56 PM Chest CTA 08/15/24 12:08 CT ANGIOGRAPHY OF THE CHEST DISSECTION PROTOCOL CLINICAL HISTORY: Chest pain, epigastric pain. Evaluate for aortic dissection. COMPARISON STUDY: Chest radiograph July 07, 2018. Chest radiograph performed earlier today. TECHNIQUE: Before and following the IV administration of 120 mL of Optiray, helical axial images of the chest were obtained. Maximal intensity projections and sagittal and coronal reformats were viewed on an independent 3D workstation. IV contrast was administered without complication. Automated exposure control was utilized for the study. A dose lowering technique was utilized adhering to the principles of ALARA. FINDINGS: Ascending aorta is dilated, measuring 4.8 cm at the level of the main pulmonary artery. There is no intramural hematoma or thoracic aortic dissection. There is moderate aortic valvular calcification. The aorta measures approximately 4.4 cm at the level the sinuses of Valsalva. No pulmonary emboli are identified. The heart is mildly enlarged. There is no pericardial effusion. No enlarged axillary, mediastinal or hilar lymph nodes are present. There is no pneumothorax or pleural effusion. No suspicious pulmonary nodules are present. Subpleural groundglass right lower lobe opacity favors atelectasis or scarring. The gallbladder is distended. There is pericholecystic stranding. There may be evidence for hyperemia within the adjacent liver parenchyma. IMPRESSION: 1. No thoracic aortic dissection. 2. Aneurysmal dilatation of the ascending aorta measuring 4.8 cm at the level of the main pulmonary artery. 3. Moderate aortic valvular calcification. 4. Findings raising the possibility of acute cholecystitis. Right upper quadrant ultrasound is recommended for further evaluation. ACT 112: Negative or not required by law. Electronically signed by: Andi Plasencia M.D. 08/15/2024 1:22 PM Chest X-Ray 08/15/24 12:08 XR chest 1V portable CLINICAL HISTORY: Chest pain, nonspecific COMPARISON STUDY: Chest radiograph July 07, 2018. FINDINGS: Lung volumes are normal. Lungs are clear. There is no pneumothorax or pleural effusion. There is mild enlargement of the cardiac silhouette. Mediastinal contours are normal. There is no evidence for pulmonary edema. IMPRESSION: No acute cardiopulmonary findings. ACT 112: Negative or not required by law. Electronically signed by: Andi Plasencia M.D. 08/15/2024 1:00 PM Gallbladder Ultrasound 08/15/24 13:22 US gallbladder CLINICAL HISTORY: Abdominal pain, ? Cholecystokinin on CT TECHNIQUE: Multiple real-time sonographic images of the right upper quadrant were obtained. Comparison: Comparison is made to CT abdomen pelvis 08/15/2024 FINDINGS: The liver is diffusely echogenic in appearance with poor ultrasound penetration, with normal contour, which is consistent with fatty infiltration. No focal mass lesions are seen. No intrahepatic ductal dilatation is seen. The gallbladder is distended with stones and sludge. No definite pericholecystic fluid is seen. The wall measures 2 mm. A sonographic Licea's sign was not elicited by the special procedure technologist. The common duct measures 0.5 cm in diameter at the level of the hepatic artery. The visualized portions of the pancreas appear normal. The right kidney shows normal echogenicity, cortical thickness and renal contour. The right kidney shows no evidence of hydronephrosis or mass. No ascites or free fluid is seen in Desir's pouch. IMPRESSION: 1. Distended gallbladder with stones and sludge however no Licea's sign, wall thickening, or pericholecystic fluid is seen. 2. Hepatic steatosis. ACT 112: Negative or not required by law. Electronically signed by: Patrick Valles M.D. 08/15/2024 2:05 PM Pending Results Patient Have Any Pending Studies at Discharge: Yes Discharge Instructions Given to Patient (Per Discharging Provider) SPECIAL CARE INSTRUCTIONS: * You have skin glue over your incisions called dermabond. you may shower with this on. It will tend to dissolve and fall off within a couple weeks. Do not pick at the skin glue * Care for your surgical drain as you have been instructed prior to discharge. Empty drain 2-3x daily and record output (bring log with you to the office). Otherwise keep bulb to suction. May cover drain site with a gauze/tape and change daily/as needed. * You may shower 08/18 . NO soaking in pools or baths for 2 weeks * No lifting greater than 10lbs. No strenuous exercise until cleared by surgeon. Light walking is accepted. * No driving while taking narcotic pain medication; wait at least 3 days * No drinking alcohol while taking narcotic pain medication * May use Ibuprofen/Tylenol over the counter for pain as tolerated. Do not exceed 3grams of Tylenol per 24 hours * Expect some swelling and bruising. * Diet- you may resume your regular diet Call your doctor if: * Temperature above 101 degrees, nausea/vomiting, fever/chills * Pain not relieved by pain medicine ordered * There is increased drainage or redness from any incision * You have any unanswered questions or concerns [phone]. FOLLOW UP VISIT: If not already scheduled, please call the office for a follow-up visit. Office Total Time Total Time Spent Total Time Spent (In Minutes): 65
[2024-08-18] MEDS: POT PHOSPHATE MONOBASIC W/ SOD TAB PO STA (14:20)
[2024-08-18 14:46] VITALS: PULSE 59
== END 2024-08-18 15:06 | disposition home or self-care (01) | DRG 418 ==
LOC: ED 11:54 → 2N 16:19 → SUATTDRO 16:19 → 2N 18:01